=== PATIENT | male | born 1990 | race Caucasian/White ===

== ENCOUNTER 2019-04-12 01:42 | Emergency (ER) | payer OTHER ==
[2019-04-12 01:51] VITALS: TEMP 97.8
[2019-04-12] MEDS ORDERED: FLUORESCEIN STRIPS 1 MG STRIP LEFT EYE ONE (01:52)
[2019-04-12] MEDS ORDERED: PROPARACAINE 0.5% OPHTH DROPS 15 ML BTL LEFT EYE STA (01:52)
--- NOTE | 2019-04-12 02:16 | ED ---
Eye Problem HPI - General Chief complaint: Eye Problems Stated complaint: Lft Eye Injury Time Seen by Provider: 04/12/19 01:52 Source: patient Mode of arrival: ambulatory Limitations: no limitations - History of Present Illness Initial comments: Spencer is a 28-year-old male presents the emergency department today for reevaluation of left eye pain. Patient reports around 7:30 PM he was grinding metal when he got metal in his left eye. Patient reports that he went to an outside facility where they evaluated his eye and removed a piece of metal. Patient reports a place drops in his eyes it numbed his eye completely and he felt great upon discharge. He was prescribed antibiotic drops which she has not yet had developed pain pill. Patient reports he returned home and was overly tender 15 minutes when he began feeling worsening pain in his eye at which time he decided to come to our facility for second opinion. Patient denies any vision changes but reports it hurts just to open his eye and it feels sicker still something in his eye or under his eyelid. - Related Data Home Medications Medication Instructions Recorded Confirmed No Known Home Medications 04/12/19 04/12/19 Allergies Allergy/AdvReac Type Severity Reaction Status Date / Time No Known Allergies Allergy Verified 04/12/19 01:51 Review of Systems ROS Statement: Those systems with pertinent positive or pertinent negative responses have been documented in the HPI. ROS Other: All systems not noted in ROS Statement are negative. Past Medical History Past Medical History: No Reported History History of Any Multi-Drug Resistant Organisms: None Reported Past Surgical History: Hernia Repair Smoking Status: Never smoker Past Alcohol Use History: None Reported Past Drug Use History: None Reported General Exam - General Exam Comments Initial Comments: Physical Exam GENERAL: Patient is well-developed and well-nourished. Patient is nontoxic and well- hydrated and is in no distress. HENT: Normocephalic, Atraumatic. EYES: PERRL, EOMI Conjunctival injection and tearing Normal eye shape Staining exam does reveal a small corneal abrasion at approximately 10 o'clock position over the iris negative Ricardo sign I care was used to measure pressures, 3 different measurements were taken, 13, 19, 13 all of these are within normal limits The eyelid was inverted there are no foreign bodies identified PULMONARY: Unlabored respirations CARDIOVASCULAR: There is a regular rate and rhythm without any murmurs gallops or rubs. ABDOMEN: Nondistended SKIN: Skin is clear with no lesions or rashes and otherwise unremarkable. : Deferred NEUROLOGIC: Patient is alert and oriented x3. Moving all extremities spontaneously MUSCULOSKELETAL: Normal extremities with adequate strength and full range of motion. No lower extremity swelling or edema. No calf tenderness. PSYCHIATRIC: Normal psychiatric evaluation. Limitations: no limitations Course Vital Signs 04/12/19 04/12/19 01:47 03:30 Temperature 97.8 F Pulse Rate 80 79 Respiratory 20 18 Rate Blood Pressure 138/92 141/83 O2 Sat by Pulse 96 99 Oximetry Medical Decision Making - Medical Decision Making The patient was seen and evaluated, history is obtained from the patient History and physical exam are consistent with corneal abrasion however patient does report metal was removed from his eye extent forcing staining with signs of corneal abrasion, no signs of perforation The eye has normal pressure Results were discussed with the patient who is comfortable with plan for discharge home. Patient was treated with erythromycin ointment for the corneal abrasion Patient will be referred to our plan for outpatient evaluation. Disposition Clinical Impression: Corneal abrasion Disposition: HOME SELF-CARE Condition: Stable Instructions (If sedation given, give patient instructions): Eye Lubricant (Into the eye) Additional Instructions: Apply the erythromycin ointment to eye every 4 hours while awake Is patient prescribed a controlled substance at d/c from ED?: No Referrals: None,Stated [Primary Care Provider] - 1-2 days Mahendra France MD [STAFF PHYSICIAN] - 1-2 days
[2019-04-12] MEDS ORDERED: ERYTHROMYCIN 5 MG/GM OPHTH OINT 3.5 GM TUBE LEFT EYE ONE (02:30)
[2019-04-12 03:31] VITALS: BP 141/83; PULSE 79; RESP 18
== END 2019-04-12 03:31 | disposition home or self-care (01) ==
LOC: EC 01:42
DX: S05.02XA Injury of conjunctiva and corneal abrasion without foreign body, left eye, initial encounter (principal); W22.8XXA Striking against or struck by other objects, initial encounter
CPT/HCPCS: 99283

== ENCOUNTER 2019-06-01 23:11 | Emergency (ER) | payer OTHER ==
[2019-06-02] MEDS ORDERED: SODIUM CHLORIDE 0.9% 1,000 ML IV STA (00:09)
[2019-06-02] MEDS ORDERED: KETOROLAC 30 MG/ML 1 ML VIAL IVP STA (00:09)
[2019-06-02 00:43] LABS: Basophils # (A) 0.1 k/uL (0-0.2); Basophils % (A) 1 %; Eosinophils # (A) 0.3 k/uL (0-0.7); Eosinophils % (A) 3 %; HCT 42.5 % (39.0-53.0); HGB 14.6 gm/dL (13.0-17.5); Lymphocytes # (A) 2.5 k/uL (1.0-4.8); Lymphocytes % (A) 29 %; MCH 29.3 pg (25.0-35.0); MCHC 34.3 g/dL (31.0-37.0); MCV 85.4 fL (80.0-100.0); Mean Platelet Volume 6.5; Monocytes # (A) 0.5 k/uL (0-1.0); Monocytes % (A) 6 %; Neutrophils # (A) 5.2 k/uL (1.3-7.7); Neutrophils % (A) 59 %; Platelet Count 252 k/uL (150-450); RBC 4.97 m/uL (4.30-5.90); RDW 12.5 % (11.5-15.5); WBC 8.9 k/uL (3.8-10.6)
--- NOTE | 2019-06-02 00:50 | XR ---
EXAMINATION TYPE: XR KUB DATE OF EXAM: 06/02/2019 COMPARISON: NONE HISTORY: Abdominal pain TECHNIQUE: 2 views upright FINDINGS: There is no sign of intestinal obstruction or pneumoperitoneum. Fecal pattern is normal. Th ere are no pathologic calcifications. Lung bases are clear. There is no sign of a mass. IMPRESSION: Nonacute abdomen.
[2019-06-02 00:51] LABS: ALT 52 U/L (21-72); AST 24 U/L (17-59); African American GFR (CKD) >90 (>60 ml/min/1.73 sqM); Albumin 4.4 g/dL (3.5-5.0); Alkaline Phosphatase 82 U/L (38-126); Amylase 62 U/L (30-110); Anion Gap 8 mmol/L; Blood Urea Nitrogen 17 mg/dL (9-20); Calcium 9.8 mg/dL (8.4-10.2); Carbon Dioxide 27 mmol/L (22-30); Chloride 105 mmol/L (98-107); Glucose 113 mg/dL (74-99); Potassium 3.9 mmol/L (3.5-5.1); Sodium 140 mmol/L (137-145); Total Bilirubin 0.4 mg/dL (0.2-1.3); Total Protein 7.4 g/dL (6.3-8.2)
[2019-06-02 01:09] LABS: Appearance,Urine Clear (Clear); Bilirubin,Urine Negative (Negative); Blood,Urine Negative (Negative); Color,Urine Yellow; Glucose,Urine (UA) Negative (Negative); Ketones,Urine Negative (Negative); Leukocyte Esterase,Urine Negative (Negative); Nitrite,Urine Negative (Negative); Protein,Urine Trace (Negative); Specific Gravity,Urine 1.029 (1.001-1.035)
--- NOTE | 2019-06-02 01:50 | CT ---
EXAMINATION TYPE: CT abdomen pelvis w con DATE OF EXAM: 06/02/2019 COMPARISON: None HISTORY: RUQ Abd Pain CT DLP: 1519.50 mGycm Automated exposure control for dose reduction was used. TECHNIQUE: Helical acquisition of images was performed from the lung bases through the pelvis. CONTRAST: Performed without Oral Contrast and with IV Contrast, patient injected with 100 mL of Isovue 300. FINDINGS: Lung bases are clear. There is no pleural effusion. There is no pericardial effusion. Liver spleen pancreas stomach appear normal. Bile ducts are not dilated. Gallbladder is contracted. There is no adrenal mass. Kidneys show satisfactory contrast opacification. There is no hydronephrosi s. Ureters are not dilated. There is no retroperitoneal adenopathy. Bladder distends smoothly. There is no inguinal hernia. There is no free fluid in the pelvis. Appendix appears normal. There is no mesenteric edema. There is no ascites or free air. Lumbar spine is intact. Bony pelvis is intact. There is no sign of a bowel obstruction. IMPRESSION: NEGATIVE CT SCAN ABDOMEN AND PELVIS. NORMAL APPENDIX.
[2019-06-02] MEDS ORDERED: ACET/COD 300 MG/30 MG STARTER PACK 6 TAB BTL PO STA (02:05)
--- NOTE | 2019-06-02 02:05 | ED ---
Abdominal Pain HPI - General Chief Complaint: Abdominal Pain Stated Complaint: Rt sided flank pain Time Seen by Provider: 06/02/19 00:00 Source: patient Mode of arrival: ambulatory Limitations: no limitations - History of Present Illness Initial Comments: 28-year-old male patient presents to the emergency department today for evaluation of right upper abdominal pain. Patient states he's been having discomfort for the last couple of days but is worsened today after having sexual intercourse. Patient states it hurts to take a deep breath, press over the area, or moves. He denies any nausea or vomiting. Denies constipation or diarrhea. Denies any fever or chills. He denies history of similar symptoms. Denies history of abdominal surgery. Patient denies any recent rash, shortness breath, chest pain, numbness, tingling, dizziness, weakness, hematuria, dysuria, urinary urgency, urinary frequency, headache, visual changes, or any other complaints. - Related Data Previous Rx's Medication Instructions Recorded Famotidine [Pepcid] 20 mg PO HS #30 tablet 06/02/19 Allergies Allergy/AdvReac Type Severity Reaction Status Date / Time No Known Allergies Allergy Verified 06/01/19 23:17 Review of Systems ROS Statement: Those systems with pertinent positive or pertinent negative responses have been documented in the HPI. ROS Other: All systems not noted in ROS Statement are negative. Past Medical History Past Medical History: No Reported History History of Any Multi-Drug Resistant Organisms: None Reported Past Surgical History: Hernia Repair Past Psychological History: No Psychological Hx Reported Smoking Status: Never smoker Past Alcohol Use History: None Reported Past Drug Use History: None Reported General Exam Limitations: no limitations General appearance: alert, in no apparent distress, other (This is a well- developed, well-nourished adult male patient in mild distress related to pain. Vital signs upon presentation are temperature 98.0F, pulse 87, respirations 20, blood pressure 145/97, pulse ox 98% on room air.) Eye exam: Present: normal appearance, PERRL, EOMI. Absent: scleral icterus, conjunctival injection, periorbital swelling ENT exam: Present: normal exam, normal oropharynx, mucous membranes moist Respiratory exam: Present: normal lung sounds bilaterally. Absent: respiratory distress, wheezes, rales, rhonchi, stridor Cardiovascular Exam: Present: regular rate, normal rhythm, normal heart sounds. Absent: systolic murmur, diastolic murmur, rubs, gallop, clicks GI/Abdominal exam: Present: soft, tenderness (Right upper quadrant tenderness), normal bowel sounds. Absent: distended, guarding, rebound, rigid Neurological exam: Present: alert, oriented X3, CN II-XII intact Psychiatric exam: Present: normal affect, normal mood Skin exam: Present: warm, dry, intact, normal color. Absent: rash Course Vital Signs 06/01/19 06/02/19 23:15 02:10 Temperature 98 F 97.5 F L Pulse Rate 87 66 Respiratory 20 18 Rate Blood Pressure 145/97 115/55 O2 Sat by Pulse 98 98 Oximetry Medical Decision Making - Medical Decision Making 28-year-old male patient presents to the emergency department today for evaluation of right upper quadrant abdominal pain and tenderness. Physical examination did reveal exquisite tenderness to the right upper quadrant and to the right lower ribs. Labs reviewed and are unremarkable. Given patient's amount of pain we did perform CT of the abdomen and pelvis which was unremarkable. Did show a contracted gallbladder. We did discuss possibility of biliary colic or gallbladder dysfunction. Is instructed to discuss HIDA scan with his primary care physician. Given a Tylenol with Codeine starter pack and a prescription for Pepcid per his request. Return parameters were discussed in detail. He verbalizes understanding and agrees with this plan. - Lab Data Result diagrams: 06/02/19 00:30 06/02/19 00:30 Lab Results 06/02/19 06/02/19 06/02/19 Range/Units 00:30 00:30 00:47 WBC 8.9 (3.8-10.6) k/uL RBC 4.97 (4.30-5.90) m/uL Hgb 14.6 (13.0-17.5) gm/dL Hct 42.5 (39.0-53.0) % MCV 85.4 (80.0-100.0) fL MCH 29.3 (25.0-35.0) pg MCHC 34.3 (31.0-37.0) g/dL RDW 12.5 (11.5-15.5) % Plt Count 252 (150-450) k/uL Neutrophils % 59 % Lymphocytes % 29 % Monocytes % 6 % Eosinophils % 3 % Basophils % 1 % Neutrophils # 5.2 (1.3-7.7) k/uL Lymphocytes # 2.5 (1.0-4.8) k/uL Monocytes # 0.5 (0-1.0) k/uL Eosinophils # 0.3 (0-0.7) k/uL Basophils # 0.1 (0-0.2) k/uL Sodium 140 (137-145) mmol/L Potassium 3.9 (3.5-5.1) mmol/L Chloride 105 (98-107) mmol/L Carbon Dioxide 27 (22-30) mmol/L Anion Gap 8 mmol/L BUN 17 (9-20) mg/dL Creatinine 0.88 (0.66-1.25) mg/dL Est GFR (CKD-EPI)AfAm >90 (>60 ml/min/1.73 sqM) Est GFR (CKD-EPI)NonAf >90 (>60 ml/min/1.73 sqM) Glucose 113 H (74-99) mg/dL Calcium 9.8 (8.4-10.2) mg/dL Total Bilirubin 0.4 (0.2-1.3) mg/dL AST 24 (17-59) U/L ALT 52 (21-72) U/L Alkaline Phosphatase 82 (38-126) U/L Total Protein 7.4 (6.3-8.2) g/dL Albumin 4.4 (3.5-5.0) g/dL Amylase 62 (30-110) U/L Lipase 117 (23-300) U/L Urine Color Yellow Urine Appearance Clear (Clear) Urine pH 6.0 (5.0-8.0) Ur Specific Meno 1.029 (1.001-1.035) Urine Protein Trace H (Negative) Urine Glucose (UA) Negative (Negative) Urine Ketones Negative (Negative) Urine Blood Negative (Negative) Urine Nitrite Negative (Negative) Urine Bilirubin Negative (Negative) Urine Urobilinogen 3.0 (<2.0) mg/dL Ur Leukocyte Esterase Negative (Negative) - Radiology Data Radiology results: report reviewed, image reviewed CT abdomen and pelvis is obtained. Report was reviewed in its entirety. Impression by Dr. Louis shows negative computed tomography scan abdomen and pelvis. Normal appendix per KUB x-ray of the abdomen is obtained. Report was reviewed in its entirety. Impression by Dr. Louis shows nonacute abdomen. Disposition Clinical Impression: Abdominal pain Disposition: HOME SELF-CARE Condition: Good Instructions (If sedation given, give patient instructions): Abdominal Pain (ED) Additional Instructions: Take medication as directed. Follow-up through primary care physician for recheck in 1-2 days. Discuss HIDA scan with your physician. Return to the emergency department immediately for any new, worsening, or concerning symptoms. Prescriptions: Famotidine [Pepcid] 20 mg PO HS #30 tablet Is patient prescribed a controlled substance at d/c from ED?: No Referrals: None,Stated [Primary Care Provider] - 1-2 days Time of Disposition: 02:04
[2019-06-02 02:12] VITALS: BP 115/55; PULSE 66; RESP 18; TEMP 97.5
== END 2019-06-02 02:21 | disposition home or self-care (01) ==
LOC: EC 23:11
DX: R10.11 Right upper quadrant pain (principal); R10.811 Right upper quadrant abdominal tenderness
CPT/HCPCS: 36415; 80053; 82150; 83690; 85025; 81003; 74018; 74177; 99284; 96374; 96361; J1885; Q9967

== ENCOUNTER 2020-08-25 15:05 | Emergency (ER) | payer OTHER ==
[2020-08-25] MEDS ORDERED: KETOROLAC 15 MG/ML 1 ML VIAL IVP STA (15:27)
[2020-08-25] MEDS ORDERED: ONDANSETRON 4 MG/2 ML VIAL IVP STA (15:27)
[2020-08-25] MEDS ORDERED: diphenhydrAMINE 50 MG/ML 1 ML VIAL IVP STA (15:27)
[2020-08-25] MEDS ORDERED: SODIUM CHLORIDE 0.9% 1,000 ML IV STA (15:27)
--- NOTE | 2020-08-25 16:25 | ED ---
Headache HPI - General Chief Complaint: Headache Stated Complaint: headache Time Seen by Provider: 08/25/20 15:13 Mode of arrival: ambulatory Limitations: no limitations - History of Present Illness Initial Comments: Patient is a 30-year-old male presenting to emergency Department with complaints of a intermittent headache for the last 2 weeks. Patient states he does not normally get headaches and if he does Motrin usually clears up. He states his headaches have been on and off for the past 2 weeks but then last night and today the headache has been more severe. Patient states he tried to take Advil this morning without improvement. He states this headache is worse than any others. He denies any blurry vision, he does feel fatigued. No nausea or vomiting. No chest pain or shortness of breath. He denies any pertinent past medical history, takes no medications. Denies any drug or alcohol use. Denies being on blood thinners. He denies any falls or trauma. He has no further complaints at this time. - Related Data Home Medications Medication Instructions Recorded Confirmed No Known Home Medications 08/25/20 08/25/20 Allergies Allergy/AdvReac Type Severity Reaction Status Date / Time No Known Allergies Allergy Verified 08/25/20 15:49 Review of Systems ROS Statement: Those systems with pertinent positive or pertinent negative responses have been documented in the HPI. ROS Other: All systems not noted in ROS Statement are negative. Past Medical History Past Medical History: No Reported History History of Any Multi-Drug Resistant Organisms: None Reported Past Surgical History: Hernia Repair Past Psychological History: No Psychological Hx Reported Smoking Status: Never smoker Past Alcohol Use History: None Reported Past Drug Use History: None Reported General Exam - General Exam Comments Initial Comments: GENERAL: Patient is well-developed and well-nourished. Patient is nontoxic and in no acute distress. HEAD: Atraumatic, normocephalic. EYES: Pupils equal round and reactive to light, extraocular movements intact, sclera anicteric, conjunctiva are normal. Eyelids were unremarkable. ENT: TMs normal, nares patent, oropharynx clear without exudates. Moist mucous membranes. NECK: Normal range of motion, supple without lymphadenopathy or JVD. LUNGS: Unlabored respirations. Breath sounds clear to auscultation bilaterally and equal. No wheezes rales or rhonchi. HEART: Regular rate and rhythm without murmurs, rubs or gallops. ABDOMEN: Soft, nontender, normoactive bowel sounds. No guarding, no rebound. No masses appreciated. : Deferred MUSCULOSKELETAL: Normal extremities with adequate strength and normal range of motion, no pitting or edema. No clubbing or cyanosis. NEUROLOGICAL: Patient is alert and oriented x 3. Motor and sensory are also intact. Cranial nerves II through XII grossly intact. Symmetrical smile. Normal speech, normal gait. PSYCH: Normal mood, normal affect. SKIN: Warm, Dry, normal turgor, no rashes or lesions noted. Limitations: no limitations Course Vital Signs 08/25/20 08/25/20 15:06 16:56 Temperature 98.8 F Pulse Rate 72 72 Respiratory 20 18 Rate Blood Pressure 145/84 113/65 O2 Sat by Pulse 98 99 Oximetry Medical Decision Making - Medical Decision Making Patient is a 30-year-old male here for a headache as been intermittent for last 2 weeks, worse the last 2 days. Exam is unremarkable, no neuro deficits. CT of the brain shows no acute abnormalities. Patient was given fluids, pain control and Zofran, he does report improvement in his symptoms. Patient is stable for discharge. Recommend following up with his PCP for further management of severe headaches. I recommend alternating Tylenol and Motrin for future headaches, trial of extra strength Excedrin. Patient is in agreement with this plan of care. Return parameters were discussed the patient he verbalizes understanding. Case discussed with Dr. Rain. Disposition Clinical Impression: Headache Disposition: HOME SELF-CARE Condition: Stable Instructions (If sedation given, give patient instructions): Acute Headache (ED) Additional Instructions: Please return to the Emergency Department if symptoms worsen or any other concerns. Alternate between Motrin and Tylenol for further headache control. Trial of Excedrin extra strength for future headaches. Follow-up with your regular doctor Is patient prescribed a controlled substance at d/c from ED?: No Referrals: None,Stated [Primary Care Provider] - 1-2 days
--- NOTE | 2020-08-25 16:40 | CT ---
EXAMINATION TYPE: CT brain wo con DATE OF EXAM: 08/25/2020 COMPARISON: None INDICATION: headache DLP: 1133.4 mGycm, Automated exposure control for dose reduction was used. CONTRAST: None CT of the brain is performed utilizing 3 mm thick sections through the posterior fossa and 3 mm thick sections through the remaining calvarium. Study is performed within 24 hours of arrival to the hosp [facility]. No abnormal hyperdensity is present to suggest an acute intracranial hemorrhage. No mass lesion is evident. No acute infarcts are evident. Ventricles and sulci are appropriate for the patient age. Paranasal sinuses and mastoid air cells within the [id number] are clear. IMPRESSIONS: 1. Normal CT Brain
[2020-08-25] MEDS ORDERED: MORPHINE SULFATE 2 MG/ML SYRINGE IVP ONE (16:50)
[2020-08-25 16:57] VITALS: RESP 18
[2020-08-25 18:06] VITALS: BP 144/62; PULSE 78; TEMP 98.4
== END 2020-08-25 18:06 | disposition home or self-care (01) ==
LOC: EC 15:05
DX: R51.9 Headache, unspecified (principal)
CPT/HCPCS: 70450; 99284; 96374; 96375 ×3; 96361; J1200; J2405; J2270; J1885

== ENCOUNTER 2020-09-19 20:47 | Emergency (ER) | payer OTHER ==
[2020-09-19 20:52] VITALS: BP 145/79; PULSE 74; RESP 18; TEMP 98.4
--- NOTE | 2020-09-19 21:41 | ED ---
Extremity Problem HPI - General Chief complaint: Extremity Problem,Nontraumatic Stated complaint: Bilateral Hand Pain Time Seen by Provider: 09/19/20 20:55 Source: patient Mode of arrival: ambulatory Limitations: no limitations - History of Present Illness Initial comments: 30yo male presenting for cc of bilateral hand pain. pt states that he has been pulling a lot of wire at work this week. he states that his hands have been burning bilaterally, sharp bruniing pains. patient denies loss of sensation, weakness, he denies sensation traveling up arms, denies sensation in feet. denies DM. denies history of neuropathy or carpal tunnel. pt denies hand swelling or redness. patietn has no additional complaints. denies direct injry. he appears well nontoxic on arrival no acute distress. - Related Data Home Medications Medication Instructions Recorded Confirmed No Known Home Medications 08/25/20 08/25/20 Allergies Allergy/AdvReac Type Severity Reaction Status Date / Time No Known Allergies Allergy Verified 09/19/20 20:52 Review of Systems ROS Statement: Those systems with pertinent positive or pertinent negative responses have been documented in the HPI. ROS Other: All systems not noted in ROS Statement are negative. Past Medical History Past Medical History: No Reported History History of Any Multi-Drug Resistant Organisms: None Reported Past Surgical History: Hernia Repair Past Psychological History: No Psychological Hx Reported Smoking Status: Never smoker Past Alcohol Use History: None Reported Past Drug Use History: None Reported General Exam - General Exam Comments Initial Comments: General: The patient is awake and alert, in no distress Eye: +3 mm pupils are equal, round and reactive to light, extra-ocular movements are intact. No nystagmus. There is normal conjunctiva bilaterally. No signs of icterus. Ears, nose, mouth and throat: There are moist mucous membranes and no oral lesions. Neck: The neck is supple, there is no tenderness or JVD. Musculoskeletal: Normal inspecdtion no redness or swelling. + phanels (left sided). (-) tinels. patient has full ROM at MCP, DIP and PIP joitns of all 5 digits of both hands equal b/l as wellas 5/5 strength in digits and wrists. 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 Sensation intact proximal and distally. Radial pulses equal bilaterally 2+. Neurological: A&O x 3. CN II-XII intact grossly, There are no obvious motor or sensory deficits. Coordination appears grossly intact. Speech is normal. Skin: Skin is warm and dry and no rashes or lesions are noted. Psychiatric: Cooperative, appropriate mood & affect, normal judgment. Limitations: no limitations Course Vital Signs 09/19/20 09/19/20 20:48 21:54 Temperature 98.4 F 98.4 F Pulse Rate 74 74 Respiratory 18 18 Rate Blood Pressure 145/79 145/79 O2 Sat by Pulse 96 96 Oximetry Medical Decision Making - Medical Decision Making INcreased hand/wrist activity this week. tingling, burning of hadn distal to wrist. +phalens b/l L> R. Suspect developing carpal tunnel. no weakness. no injury. recommend rest, NSAIDs. Return for worsening symptoms, or if ssensation travels proximally/experience in feet. patient is to see orthopedics/pcp. patient agreeable to care plan. Dr. Kelley agreeable to discharge/care plan. Disposition Clinical Impression: Bilateral hand pain Disposition: HOME SELF-CARE Condition: Good Instructions (If sedation given, give patient instructions): Paresthesia (ED), Carpal Tunnel Surgery (DC) Additional Instructions: Please use medication as discussed. Please follow-up with family doctor in the next 2 days. Please return to emergency room if the symptoms increase or worsen or for any other concerns. Is patient prescribed a controlled substance at d/c from ED?: No Referrals: None,Stated [Primary Care Provider] - 1-2 days Prasad Oseguera MD [STAFF PHYSICIAN] - 1-2 days Time of Disposition: 21:41
[2020-09-19] MEDS ORDERED: ACET/COD 300 MG/30 MG STARTER PACK 6 TAB BTL PO STA (21:51)
== END 2020-09-19 21:55 | disposition home or self-care (01) ==
LOC: EC 20:47
DX: M79.641 Pain in right hand (principal); M79.642 Pain in left hand; X58.XXXA Exposure to other specified factors, initial encounter; Y92.69 Other specified industrial and construction area as the place of occurrence of the external cause
CPT/HCPCS: 99283

== ENCOUNTER 2020-12-01 22:36 | Emergency (ER) | payer OTHER ==
[2020-12-01 22:39] VITALS: BP 148/86; PULSE 95; RESP 24; TEMP 98
--- NOTE | 2020-12-01 23:53 | XR ---
EXAMINATION TYPE: XR chest 2V DATE OF EXAM: 12/01/2020 COMPARISON: NONE HISTORY: Short of breath. Cough. TECHNIQUE: 2 views FINDINGS: Heart and mediastinum are normal. Lungs are clear of consolidation. There are no hilar mass es. Costophrenic angles are clear. Bony thorax is intact. There is small linear area of density in th e lateral right midlung field. IMPRESSION: Small linear infiltrate or atelectasis in the periphery of the right midlung. Normal hear t.
[2020-12-02] MEDS ORDERED: dexAMETHasone 2 MG TAB PO STA (00:06)
--- NOTE | 2020-12-02 00:06 | ED ---
URI HPI - General Source: patient Mode of arrival: ambulatory Limitations: no limitations <Sandhya Matthew - Last Filed: 12/02/20 00:26> <Sona Adhikari - Last Filed: 12/07/20 03:17> - General Chief Complaint: Upper Respiratory Infection Stated Complaint: MARIO ALBERTO, covid+ Time Seen by Provider: 12/01/20 22:42 - History of Present Illness Initial Comments: Patient is a 30-year-old male presenting to the emergency Department with complaints of increased in cough and shortness of breath. Patient states he tested positive for on 11/27/2020. He has been having cough, chills, low-grade temperature although his fever has seemed to go away. He denies any nausea or vomiting, no abdominal pain. He states he's been able to eat and drink as normal. He came in today because he feels like his shortness of breath is increasing and his cough is getting worse. Patient denies history of asthma or COPD, he is a nonsmoker. He has no past medical history and takes no medications. He has no further complaints. His vital signs are stable upon arrival. (Sandhya Matthew) - Related Data Previous Rx's Medication Instructions Recorded Albuterol Inhaler [Ventolin Hfa 4 puff INHALATION RT-QID PRN #1 12/02/20 Inhaler] puff Dexamethasone [Decadron] 6 mg PO DAILY 5 Days #5 tablet 12/02/20 Allergies Allergy/AdvReac Type Severity Reaction Status Date / Time No Known Allergies Allergy Verified 12/01/20 22:39 Review of Systems ROS Other: All systems not noted in ROS Statement are negative. <Sandhya Matthew - Last Filed: 12/02/20 00:26> ROS Other: All systems not noted in ROS Statement are negative. <Sona Adhikari - Last Filed: 12/07/20 03:17> ROS Statement: Those systems with pertinent positive or pertinent negative responses have been documented in the HPI. Past Medical History Past Medical History: No Reported History Additional Past Medical History / Comment(s): covid 19 - 11/27/20 History of Any Multi-Drug Resistant Organisms: None Reported Past Surgical History: Hernia Repair Past Psychological History: No Psychological Hx Reported Smoking Status: Never smoker Past Alcohol Use History: None Reported Past Drug Use History: None Reported <Sandhya Matthew - Last Filed: 12/02/20 00:26> General Exam Limitations: no limitations <Sandhya Matthew - Last Filed: 12/02/20 00:26> - General Exam Comments Initial Comments: GENERAL: Patient is well-developed and well-nourished. Patient is nontoxic and in no acute distress. HEAD: Atraumatic, normocephalic. EYES: Pupils equal round and reactive to light, extraocular movements intact, sclera anicteric, conjunctiva are normal. Eyelids were unremarkable. ENT: TMs normal, nares patent, oropharynx clear without exudates. Moist mucous membranes. NECK: Normal range of motion, supple without lymphadenopathy or JVD. LUNGS: Unlabored respirations. Breath sounds clear to auscultation bilaterally and equal. No wheezes rales or rhonchi. HEART: Regular rate and rhythm without murmurs, rubs or gallops. ABDOMEN: Soft, nontender, normoactive bowel sounds. No guarding, no rebound. No masses appreciated. : Deferred MUSCULOSKELETAL: Normal extremities with adequate strength and normal range of motion, no pitting or edema. No clubbing or cyanosis. NEUROLOGICAL: Patient is alert and oriented x 3. Motor and sensory are also intact. Cranial nerves II through XII grossly intact. Symmetrical smile. Normal speech, normal gait. PSYCH: Normal mood, normal affect. SKIN: Warm, Dry, normal turgor, no rashes or lesions noted. (Sandhya Matthew) Course Vital Signs 12/01/20 22:37 Temperature 98.0 F Pulse Rate 95 Respiratory 24 Rate Blood Pressure 148/86 O2 Sat by Pulse 99 Oximetry Medical Decision Making <Sandhya Matthew - Last Filed: 12/02/20 00:26> <Sona Adhikari - Last Filed: 12/07/20 03:17> - Medical Decision Making Patient is a 30-year-old healthy male here for worsening cough and shortness of breath over the past couple days. Patient tested positive for "blood on 11/27/2020. His vital signs are completely normal upon arrival. His exam is unremarkable. He is noted to have a dry cough. Chest x-ray shows small linear infiltrates of the right midlung, no other abnormalities. Patient does not meet qualifications for BAM infusion. Patient will be started on steroids and given an inhaler for his shortness of breath and cough. He is stable for discharge. He will follow up with his regular doctor. Return parameters were discussed with the patient and he verbalized understanding. Case discussed with Dr. Adhikari. (Sandhya Matthew) I was available for consultation in the emergency department. The history and physical exam were done by the midlevel provider. I was consulted for this patients care. I reviewed the case with the midlevel provider and based on their presentation of the patient, I agree with the assessment, medical decision making and plan of care as documented. Chart was dictated using [employer] dictation software. Attempts were made to correct any dictation errors however some typographical errors may persist. Patient was seen during a national state of emergency due to the Covid-19 pandemic. (Sona Adhikari) Disposition Is patient prescribed a controlled substance at d/c from ED?: No <Sandhya Matthew - Last Filed: 12/02/20 00:26> <Sona Adhikari - Last Filed: 12/07/20 03:17> Clinical Impression: COVID-19 Disposition: HOME SELF-CARE Condition: Stable Instructions (If sedation given, give patient instructions): Coronavirus Disease 2019 (COVID-19) Additional Instructions: Please return to the Emergency Department if symptoms worsen or any other concerns. Take steroids as prescribed, use inhaler as needed for cough or shortness of breath. Follow-up with your regular doctor. Prescriptions: Dexamethasone [Decadron] 6 mg PO DAILY 5 Days #5 tablet Albuterol Inhaler [Ventolin Hfa Inhaler] 4 puff INHALATION RT-QID PRN #1 puff PRN Reason: Shortness Of Breath Referrals: None,Stated [Primary Care Provider] - 1-2 days
== END 2020-12-02 00:17 | disposition home or self-care (01) ==
LOC: EC 22:36
DX: U07.1 COVID-19 (principal)
CPT/HCPCS: 71046; 99284; J8540

== ENCOUNTER 2020-12-11 23:02 | Emergency (ER) | payer OTHER ==
[2020-12-11 23:07] VITALS: TEMP 98
[2020-12-11] MEDS ORDERED: diphenhydrAMINE 50 MG/ML 1 ML VIAL IVP STA (23:23)
[2020-12-11] MEDS ORDERED: FAMOTIDINE 20 MG/2 ML VIAL IV STA (23:24)
[2020-12-11] MEDS ORDERED: KETOROLAC 15 MG/ML 1 ML VIAL IVP STA (23:24)
[2020-12-11] MEDS ORDERED: SODIUM CHLORIDE 0.9% 2,000 ML IV STA (23:30)
[2020-12-11] MEDS ORDERED: SODIUM CHLORIDE 0.9% 1,000 ML IV STA (23:30)
--- NOTE | 2020-12-11 23:30 | ED ---
Skin/Abscess/FB HPI - General Chief complaint: Skin/Abscess/Foreign Body Stated complaint: Rash Time Seen by Provider: 12/11/20 23:10 Source: patient, RN notes reviewed Mode of arrival: ambulatory Limitations: no limitations - History of Present Illness Initial comments: Patient is a 30-year-old male that presents to emergency department with a total body rash eruption. He notes that it is most painful and his groin, scrotum. He notes the rash appeared over the last 1-2 days. He notes the pain is severe enough that it is difficult from the walk lay down sit and over. Patient was in visible pain and distress while standing up in the room during the exam interview. Patient had too numerous to count vesicles/pustules covering his entire body groin buttocks upper legs trunk and torso. She denied any significant medical history other than recently getting over Covid. He noted that he was on steroids several times. Patient stated this the first time he said the skin is like this but noted that he does get pimples" on his upper body but nothing like this. He states the pain is excruciating. He also noted that elevating his testicles helped reduce pain in his scrotum and groin region. Patient denied chest pain shortness of breath headache nausea vomiting diarrhea constipation contact with any skin irritants, ALLERGIES. - Related Data Previous Rx's Medication Instructions Recorded Albuterol Inhaler [Ventolin Hfa 4 puff INHALATION RT-QID PRN #1 12/02/20 Inhaler] puff Dexamethasone [Decadron] 6 mg PO DAILY 5 Days #5 tablet 12/02/20 Famotidine [Pepcid] 20 mg PO BID #28 tablet 12/12/20 hydrOXYzine HCL [Atarax] 25 mg PO TID PRN #15 tab 12/12/20 traMADol HCl [Ultram] 50 mg PO Q4HR PRN 3 Days #18 tab 12/12/20 Allergies Allergy/AdvReac Type Severity Reaction Status Date / Time No Known Allergies Allergy Verified 12/11/20 23:07 Review of Systems ROS Statement: Those systems with pertinent positive or pertinent negative responses have been documented in the HPI. ROS Other: All systems not noted in ROS Statement are negative. Past Medical History Past Medical History: No Reported History Additional Past Medical History / Comment(s): covid 19 - 11/27/20 History of Any Multi-Drug Resistant Organisms: None Reported Past Surgical History: Hernia Repair Past Psychological History: No Psychological Hx Reported Smoking Status: Never smoker Past Alcohol Use History: None Reported Past Drug Use History: None Reported General Exam Limitations: no limitations General appearance: alert, in no apparent distress Head exam: Present: atraumatic, normocephalic, normal inspection Extremities exam: Present: normal inspection, full ROM, normal capillary refill. Absent: tenderness, pedal edema, joint swelling, calf tenderness Neurological exam: Present: alert, oriented X3, CN II-XII intact Psychiatric exam: Present: normal affect, normal mood Skin exam: Present: warm, dry, intact, normal color (Covering from just below the knee up to his chest), rash, vesicles (Vesicles and pustules covering large portion of body including the back chest abdomen groin and buttocks scrotum and genitalia) Course Vital Signs 12/11/20 12/12/20 23:05 00:07 Temperature 98 F Pulse Rate 131 H 99 Respiratory 20 18 Rate Blood Pressure 135/77 129/62 O2 Sat by Pulse 95 98 Oximetry Medical Decision Making - Medical Decision Making 30-year-old male with rash/vascular/pustules over upper body trunk groin and buttocks. Labs, 50 mg of Benadryl, 2 mg of Dilaudid, 50 mg of Toradol, 20 mg of Pepcid, CT of the pelvis with contrast ordered. Labs: White blood cells 15.2, LDH 646, C-reactive protein 4.5, rest of labs unremarkable., Ultrasound of the scrotum ordered. Case discussed with Dr. Antonio, patient can discharge home with follow-up to GI. - Lab Data Result diagrams: 12/11/20 23:27 12/11/20 23:27 Lab Results 12/11/20 12/11/20 12/11/20 Range/Units 23:27 23:27 23:27 WBC 15.2 H (3.8-10.6) k/uL RBC 4.92 (4.30-5.90) m/uL Hgb 15.0 (13.0-17.5) gm/dL Hct 41.4 (39.0-53.0) % MCV 84.1 (80.0-100.0) fL MCH 30.4 (25.0-35.0) pg MCHC 36.1 (31.0-37.0) g/dL RDW 12.2 (11.5-15.5) % Plt Count 263 (150-450) k/uL MPV 7.0 Neutrophils % 70 % Lymphocytes % 20 % Monocytes % 8 % Eosinophils % 1 % Basophils % 0 % Neutrophils # 10.6 H (1.3-7.7) k/uL Lymphocytes # 3.0 (1.0-4.8) k/uL Monocytes # 1.2 H (0-1.0) k/uL Eosinophils # 0.2 (0-0.7) k/uL Basophils # 0.1 (0-0.2) k/uL ESR 18 H (0-15) mm/hr PT 9.4 (9.0-12.0) sec INR 0.9 (<1.2) APTT 22.6 (22.0-30.0) sec Sodium 137 (137-145) mmol/L Potassium 4.5 (3.5-5.1) mmol/L Chloride 100 (98-107) mmol/L Carbon Dioxide 28 (22-30) mmol/L Anion Gap 9 mmol/L BUN 16 (9-20) mg/dL Creatinine 1.01 (0.66-1.25) mg/dL Est GFR (CKD-EPI)AfAm >90 (>60 ml/min/1.73 sqM) Est GFR (CKD-EPI)NonAf >90 (>60 ml/min/1.73 sqM) Glucose 103 H (74-99) mg/dL Calcium 9.6 (8.4-10.2) mg/dL Phosphorus 4.1 (2.5-4.5) mg/dL Magnesium 2.0 (1.6-2.3) mg/dL Total Bilirubin 0.7 (0.2-1.3) mg/dL AST 33 (17-59) U/L ALT 67 H (4-49) U/L Alkaline Phosphatase 108 (38-126) U/L Lactate Dehydrogenase 646 H (313-618) U/L C-Reactive Protein 4.5 H (<1.0) mg/dL Total Protein 7.1 (6.3-8.2) g/dL Albumin 4.3 (3.5-5.0) g/dL Urine Color Urine Appearance (Clear) Urine pH (5.0-8.0) Ur Specific [place] (1.001-1.035) Urine Protein (Negative) Urine Glucose (UA) (Negative) Urine Ketones (Negative) Urine Blood (Negative) Urine Nitrite (Negative) Urine Bilirubin (Negative) Urine Urobilinogen (<2.0) mg/dL Ur Leukocyte Esterase (Negative) 12/12/20 Range/Units 00:41 WBC (3.8-10.6) k/uL RBC (4.30-5.90) m/uL Hgb (13.0-17.5) gm/dL Hct (39.0-53.0) % MCV (80.0-100.0) fL MCH (25.0-35.0) pg MCHC (31.0-37.0) g/dL RDW (11.5-15.5) % Plt Count (150-450) k/uL MPV Neutrophils % % Lymphocytes % % Monocytes % % Eosinophils % % Basophils % % Neutrophils # (1.3-7.7) k/uL Lymphocytes # (1.0-4.8) k/uL Monocytes # (0-1.0) k/uL Eosinophils # (0-0.7) k/uL Basophils # (0-0.2) k/uL ESR (0-15) mm/hr PT (9.0-12.0) sec INR (<1.2) APTT (22.0-30.0) sec Sodium (137-145) mmol/L Potassium (3.5-5.1) mmol/L Chloride (98-107) mmol/L Carbon Dioxide (22-30) mmol/L Anion Gap mmol/L BUN (9-20) mg/dL Creatinine (0.66-1.25) mg/dL Est GFR (CKD-EPI)AfAm (>60 ml/min/1.73 sqM) Est GFR (CKD-EPI)NonAf (>60 ml/min/1.73 sqM) Glucose (74-99) mg/dL Calcium (8.4-10.2) mg/dL Phosphorus (2.5-4.5) mg/dL Magnesium (1.6-2.3) mg/dL Total Bilirubin (0.2-1.3) mg/dL AST (17-59) U/L ALT (4-49) U/L Alkaline Phosphatase (38-126) U/L Lactate Dehydrogenase (313-618) U/L C-Reactive Protein (<1.0) mg/dL Total Protein (6.3-8.2) g/dL Albumin (3.5-5.0) g/dL Urine Color Yellow Urine Appearance Clear (Clear) Urine pH 7.0 (5.0-8.0) Ur Specific [place] >1.050 H (1.001-1.035) Urine Protein Negative (Negative) Urine Glucose (UA) Negative (Negative) Urine Ketones Negative (Negative) Urine Blood Negative (Negative) Urine Nitrite Negative (Negative) Urine Bilirubin Negative (Negative) Urine Urobilinogen 4.0 (<2.0) mg/dL Ur Leukocyte Esterase Negative (Negative) - Radiology Data Radiology results: report reviewed, image reviewed CT of the pelvis: There is some mild perianal subcutaneous edema which is new compared to old exam no evidence of pelvic mass. Normal appendix. Ultrasound of the scrotum: No acute findings in the scrotum. Disposition Clinical Impression: Vasculitis, COVID-19, Rectal pain Disposition: HOME SELF-CARE Condition: Stable Instructions (If sedation given, give patient instructions): Rectal Pain (ED), Coronavirus Disease 2019 (COVID-19) Prescriptions: hydrOXYzine HCL [Atarax] 25 mg PO TID PRN #15 tab PRN Reason: Allergic Reaction Famotidine [Pepcid] 20 mg PO BID #28 tablet traMADol HCl [Ultram] 50 mg PO Q4HR PRN 3 Days #18 tab PRN Reason: Pain Is patient prescribed a controlled substance at d/c from ED?: Yes When asked, does pt state using other controlled substances?: No If prescribed controlled substance>3 days was MAPS reviewed?: Prescribed <3 Days If opioid is for acute pain is fill amount 7 days or less?: Yes If Rx opioid, was Start Talking consent form obtained?: No Referrals: None,Stated [Primary Care Provider] - 1-2 days Harjit Ellison MD [STAFF PHYSICIAN] - 1-2 days Time of Disposition: 02:13
[2020-12-11] MEDS: HYDROmorphone 1 MG/ML 1 ML SYRINGE IVP STA ×2 (23:32→23:34)
[2020-12-11 23:39] LABS: Basophils # (A) 0.1 k/uL (0-0.2); Basophils % (A) 0 %; Eosinophils # (A) 0.2 k/uL (0-0.7); Eosinophils % (A) 1 %; HCT 41.4 % (39.0-53.0); Lymphocytes % (A) 20 %; MCH 30.4 pg (25.0-35.0); MCHC 36.1 g/dL (31.0-37.0); MCV 84.1 fL (80.0-100.0); Monocytes # (A) 1.2 k/uL (0-1.0); Monocytes % (A) 8 %; Neutrophils # (A) 10.6 k/uL (1.3-7.7); Neutrophils % (A) 70 %; Platelet Count 263 k/uL (150-450); RBC 4.92 m/uL (4.30-5.90); RDW 12.2 % (11.5-15.5); WBC 15.2 k/uL (3.8-10.6)
[2020-12-11 23:47] LABS: INR 0.9 (<1.2); Partial Thromboplastin Time 22.6 sec (22.0-30.0); Prothrombin Time 9.4 sec (9.0-12.0)
[2020-12-11 23:52] LABS: ALT 67 U/L (4-49); AST 33 U/L (17-59); African American GFR (CKD) >90 (>60 ml/min/1.73 sqM); Albumin 4.3 g/dL (3.5-5.0); Alkaline Phosphatase 108 U/L (38-126); Anion Gap 9 mmol/L; Blood Urea Nitrogen 16 mg/dL (9-20); C Reactive Protein 4.5 mg/dL (<1.0); Calcium 9.6 mg/dL (8.4-10.2); Carbon Dioxide 28 mmol/L (22-30); Chloride 100 mmol/L (98-107); Glucose 103 mg/dL (74-99); LDH 646 U/L (313-618); Non-African American GFR(CKD) >90 (>60 ml/min/1.73 sqM); Phosphorus 4.1 mg/dL (2.5-4.5); Potassium 4.5 mmol/L (3.5-5.1); Sodium 137 mmol/L (137-145); Total Bilirubin 0.7 mg/dL (0.2-1.3); Total Protein 7.1 g/dL (6.3-8.2)
--- NOTE | 2020-12-12 00:18 | CT ---
EXAMINATION TYPE: CT pelvis w con DATE OF EXAM: 12/11/2020 COMPARISON: 06/02/2019 HISTORY: painful rash in genital area post covid. prior CT of A/P on PACS CT DLP: 1147.2 mGycm Automated exposure control for dose reduction was used. CONTRAST: Performed with IV Contrast, patient injected with iso 300/100ml mL of Isovue 300. Images obtained from the iliac crests to the floor the pelvis with IV contrast. Appendix appears normal. There is no free fluid in the pelvis. Bladder distends smoothly. There is no evidence of pelvic mass. There is no inguinal hernia. There is no sign of mesenteric edema. There is no evidence of ascites. There is no sign of free air. There is subcutaneous edema around the anus. There is no discrete fluid collection. IMPRESSION: There is some mild perianal subcutaneous edema which is new compared to old exam. No evidence of a pe lvic mass. Normal appendix.
[2020-12-12] MEDS ORDERED: SODIUM CHLORIDE 0.9% 1,000 ML IV STA (00:36)
[2020-12-12 00:47] VITALS: RESP 18
[2020-12-12 00:48] LABS: Erythrocyte Sedimentation Rate 18 mm/hr (0-15)
[2020-12-12 00:58] LABS: Appearance,Urine Clear (Clear); Bilirubin,Urine Negative (Negative); Blood,Urine Negative (Negative); Color,Urine Yellow; Glucose,Urine (UA) Negative (Negative); Ketones,Urine Negative (Negative); Leukocyte Esterase,Urine Negative (Negative); Nitrite,Urine Negative (Negative); Protein,Urine Negative (Negative)
[2020-12-12 01:10] LABS: Specific Gravity,Urine >1.050 (1.001-1.035)
--- NOTE | 2020-12-12 01:54 | US ---
EXAM: US Scrotum CLINICAL HISTORY: ITS.REASON US Reason: pain TECHNIQUE: Real-time ultrasound of the scrotum with color Doppler and image documentation. COMPARISON: No relevant prior studies available. FINDINGS: Right testicle: The right testicle measures 4.5 x 2.5 x 3 cm, 17.3 mL. The echo texture is normal. Doppler blood flow is normal. No torsion. Left testicle: The left testicle measures 4.6 x 2.7 x 2.7 cm, 17.1 mL. The echo texture is normal. Doppler blood flow is normal. No torsion. Epididymides: The right epididymis measures 1.7 cm with normal appearance. The left epididymal head measures 1.1 cm with normal appearance. Scrotum: Unremarkable. IMPRESSION: No acute findings in the scrotum.
[2020-12-12 02:39] VITALS: BP 144/89; PULSE 78
== END 2020-12-12 02:38 | disposition home or self-care (01) ==
LOC: EC 23:02
DX: L95.9 Vasculitis limited to the skin, unspecified (principal); K62.89 Other specified diseases of anus and rectum; Z86.16 Personal history of COVID-19
CPT/HCPCS: 36415; 80053; 85652; 83615; 83735; 84100; 85025; 85610; 85730; 86140; 81003; 87491; 87591; 93975; 76870; 72193; 99283; 96361 ×3; 96374; 96375 ×3; J1200; J1170; J1885; Q9967; 96365

== ENCOUNTER 2020-12-14 19:47 | Inpatient (IN) | payer OTHER ==
[2020-12-14] MEDS ORDERED: ACETAMINOPHEN TAB 500 MG TAB PO STA (20:20)
[2020-12-14] MEDS ORDERED: IBUPROFEN 600 MG TAB PO STA (20:20)
[2020-12-14] MEDS ORDERED: ONDANSETRON 4 MG/2 ML VIAL IVP STA (20:34)
[2020-12-14] MEDS ORDERED: MORPHINE SULFATE 4 MG/ML SYRINGE IVP STA ×2 (20:34→23:11)
[2020-12-14] MEDS: SODIUM CHLORIDE 0.9% 500 ML 500 ML IV SCH ×3 (20:41→22:32)
[2020-12-14] MEDS ORDERED: cefTRIAXone IN SWFI 1,000 MG/10 ML SYRINGE IVP STA (20:50)
--- NOTE | 2020-12-14 20:50 | ED ---
General Adult HPI - General Chief complaint: Allergic Reaction Stated complaint: Rash Time Seen by Provider: 12/14/20 20:02 Source: patient, EMS Mode of arrival: EMS - History of Present Illness Initial comments: 30-year-old male presents to the emergency room for a chief complaint of perineum pain. Patient has had this pain for about 4 days now. Patient states he felt a rash at the same time and thought it was related to his coronavirus in that he had just started Decadron. However the pain has worsened. States he is having fevers. Patient was diagnosed with coronavirus on November 27 and only had fevers for 3 days and then they resolved. However he has started to have fevers again for the past 4 days. Patient does admit to dysuria. He denies upper abdominal pain but does admit to mid abdominal pain. Admits to vomiting.Patient has no other complaints at this time including shortness of breath, chest pain, headache, or visual changes. - Related Data Previous Rx's Medication Instructions Recorded Albuterol Inhaler [Ventolin Hfa 4 puff INHALATION RT-QID PRN #1 12/02/20 Inhaler] puff Dexamethasone [Decadron] 6 mg PO DAILY 5 Days #5 tablet 12/02/20 Famotidine [Pepcid] 20 mg PO BID #28 tablet 12/12/20 hydrOXYzine HCL [Atarax] 25 mg PO TID PRN #15 tab 12/12/20 traMADol HCl [Ultram] 50 mg PO Q4HR PRN 3 Days #18 tab 12/12/20 Allergies Allergy/AdvReac Type Severity Reaction Status Date / Time dexamethasone [From Decadron] Allergy Rash/Hives Verified 12/14/20 19:59 Review of Systems ROS Statement: Those systems with pertinent positive or pertinent negative responses have been documented in the HPI. ROS Other: All systems not noted in ROS Statement are negative. Past Medical History Past Medical History: No Reported History Additional Past Medical History / Comment(s): covid 19 - 11/27/20 History of Any Multi-Drug Resistant Organisms: None Reported Past Surgical History: Hernia Repair Past Psychological History: No Psychological Hx Reported Smoking Status: Never smoker Past Alcohol Use History: None Reported Past Drug Use History: None Reported General Exam General appearance: alert, in no apparent distress Head exam: Present: atraumatic, normocephalic, normal inspection Eye exam: Present: normal appearance, PERRL, EOMI. Absent: scleral icterus, conjunctival injection, periorbital swelling ENT exam: Present: normal exam, mucous membranes moist Neck exam: Present: normal inspection. Absent: tenderness, meningismus, lymphadenopathy Respiratory exam: Present: normal lung sounds bilaterally. Absent: respiratory distress, wheezes, rales, rhonchi, stridor Cardiovascular Exam: Present: regular rate, normal rhythm, normal heart sounds. Absent: systolic murmur, diastolic murmur, rubs, gallop, clicks GI/Abdominal exam: Present: soft, tenderness (lower abdominal tenderness), normal bowel sounds. Absent: distended, guarding, rebound, rigid Rectal exam: Present: normal inspection, normal rectal tone. Absent: other (non-tender) exam: Present: other (tenderness to perineum, no rash or cellulitis, Milly RANDOLPH present as rn heart). Absent: testicular tenderness, urethral discharge, scrotal swelling, vertical testicular lie, circumcision Course Vital Signs 12/14/20 12/14/20 19:54 21:45 Temperature 103.6 F H 100.5 F H Pulse Rate 118 H 106 H Respiratory 18 18 Rate Blood Pressure 149/78 118/53 O2 Sat by Pulse 95 93 L Oximetry Medical Decision Making - Medical Decision Making Patient was sent to the 103.6 fever and tachycardia which is likely reflexive to fever. Physical exam does reveal tenderness around the perineal area, no obvious abscess or cellulitis. CBC does reveal leukocytosis of [place] 0.7 with a left shift. CMP unremarkable. Urinalysis unremarkable. CT abdomen and pelvis did reveal a 3.2 x 2.3 centimeter fluid collection with surrounding mild fat stranding on the anterior aspect of the anus near the skin surface this is consistent with perianal abscess and is increased in size slightly compared to recent exam. Repeat exam with [place] as rn heart. I do not see any evident abscess on physical exam. I did discuss this case with Dr. Murillo who will take patient in the morning to surgery, recommends antibiotics. Of note patient was diagnosed with coronavirus about 2 weeks ago, we will repeat swab tonight. - Lab Data Result diagrams: 12/14/20 20:30 12/14/20 20:30 Lab Results 04/27/21 04/27/21 04/27/21 Range/Units 20:30 20:30 20:30 WBC 12.7 H (3.8-10.6) k/uL RBC 4.86 (4.30-5.90) m/uL Hgb 13.6 (13.0-17.5) gm/dL Hct 41.4 (39.0-53.0) % MCV 85.1 (80.0-100.0) fL MCH 28.0 (25.0-35.0) pg MCHC 33.0 (31.0-37.0) g/dL RDW 12.3 (11.5-15.5) % Plt Count 222 (150-450) k/uL MPV 7.0 Neutrophils % 83 % Lymphocytes % 9 % Monocytes % 6 % Eosinophils % 1 % Basophils % 0 % Neutrophils # 10.6 H (1.3-7.7) k/uL Lymphocytes # 1.1 (1.0-4.8) k/uL Monocytes # 0.7 (0-1.0) k/uL Eosinophils # 0.1 (0-0.7) k/uL Basophils # 0.0 (0-0.2) k/uL PT 11.1 (9.0-12.0) sec INR 1.1 (<1.2) APTT 22.6 (22.0-30.0) sec Sodium 134 L (137-145) mmol/L Potassium 4.5 (3.5-5.1) mmol/L Chloride 100 (98-107) mmol/L Carbon Dioxide 27 (22-30) mmol/L Anion Gap 7 mmol/L BUN 18 (9-20) mg/dL Creatinine 1.25 (0.66-1.25) mg/dL Est GFR (CKD-EPI)AfAm 88 (>60 ml/min/1.73 sqM) Est GFR (CKD-EPI)NonAf 76 (>60 ml/min/1.73 sqM) Glucose 95 (74-99) mg/dL Plasma Lactic Acid [place] (0.7-2.0) mmol/L Calcium 8.7 (8.4-10.2) mg/dL Total Bilirubin 1.3 (0.2-1.3) mg/dL AST 38 (17-59) U/L ALT 69 H (4-49) U/L Alkaline Phosphatase 94 (38-126) U/L Total Protein 6.8 (6.3-8.2) g/dL Albumin 3.8 (3.5-5.0) g/dL Urine Color Urine Appearance (Clear) Urine pH (5.0-8.0) Ur Specific [place] (1.001-1.035) Urine Protein (Negative) Urine Glucose (UA) (Negative) Urine Ketones (Negative) Urine Blood (Negative) Urine Nitrite (Negative) Urine Bilirubin (Negative) Urine Urobilinogen (<2.0) mg/dL Ur Leukocyte Esterase (Negative) 12/14/20 12/14/20 Range/Units 20:30 21:40 WBC (3.8-10.6) k/uL RBC (4.30-5.90) m/uL Hgb (13.0-17.5) gm/dL Hct (39.0-53.0) % MCV (80.0-100.0) fL MCH (25.0-35.0) pg MCHC (31.0-37.0) g/dL RDW (11.5-15.5) % Plt Count (150-450) k/uL MPV Neutrophils % % Lymphocytes % % Monocytes % % Eosinophils % % Basophils % % Neutrophils # (1.3-7.7) k/uL Lymphocytes # (1.0-4.8) k/uL Monocytes # (0-1.0) k/uL Eosinophils # (0-0.7) k/uL Basophils # (0-0.2) k/uL PT (9.0-12.0) sec INR (<1.2) APTT (22.0-30.0) sec Sodium (137-145) mmol/L Potassium (3.5-5.1) mmol/L Chloride (98-107) mmol/L Carbon Dioxide (22-30) mmol/L Anion Gap mmol/L BUN (9-20) mg/dL Creatinine (0.66-1.25) mg/dL Est GFR (CKD-EPI)AfAm (>60 ml/min/1.73 sqM) Est GFR (CKD-EPI)NonAf (>60 ml/min/1.73 sqM) Glucose (74-99) mg/dL Plasma Lactic Acid [place] 1.0 (0.7-2.0) mmol/L Calcium (8.4-10.2) mg/dL Total Bilirubin (0.2-1.3) mg/dL AST (17-59) U/L ALT (4-49) U/L Alkaline Phosphatase (38-126) U/L Total Protein (6.3-8.2) g/dL Albumin (3.5-5.0) g/dL Urine Color Yellow Urine Appearance Clear (Clear) Urine pH 8.0 (5.0-8.0) Ur Specific [place] >1.050 H (1.001-1.035) Urine Protein Trace H (Negative) Urine Glucose (UA) Negative (Negative) Urine Ketones Trace H (Negative) Urine Blood Negative (Negative) Urine Nitrite Negative (Negative) Urine Bilirubin Negative (Negative) Urine Urobilinogen >12.0 (<2.0) mg/dL Ur Leukocyte Esterase Negative (Negative) Disposition Clinical Impression: Perianal abscess, Leukocytosis, Fever Disposition: ADMITTED IP TO THIS HOSP Is patient prescribed a controlled substance at d/c from ED?: No Referrals: None,Stated [Primary Care Provider] - 1-2 days Time of Disposition: 23:14
--- NOTE | 2020-12-14 21:04 | XR ---
EXAMINATION TYPE: XR chest 1V portable DATE OF EXAM: 12/14/2020 COMPARISON: 12/01/2020 HISTORY: Fever TECHNIQUE: FINDINGS: Heart and mediastinum are normal. Lungs are clear of infiltrate. There are no hilar masses. Costophrenic angles are clear. The bony thorax is intact. IMPRESSION: No active cardiopulmonary disease. Normal heart. No change.
[2020-12-14 21:12] LABS: Basophils % (A) 0 %; Eosinophils # (A) 0.1 k/uL (0-0.7); Eosinophils % (A) 1 %; HCT 41.4 % (39.0-53.0); HGB 13.6 gm/dL (13.0-17.5); Lymphocytes # (A) 1.1 k/uL (1.0-4.8); Lymphocytes % (A) 9 %; MCV 85.1 fL (80.0-100.0); Monocytes # (A) 0.7 k/uL (0-1.0); Monocytes % (A) 6 %; Neutrophils # (A) 10.6 k/uL (1.3-7.7); Neutrophils % (A) 83 %; Platelet Count 222 k/uL (150-450); RBC 4.86 m/uL (4.30-5.90); RDW 12.3 % (11.5-15.5); WBC 12.7 k/uL (3.8-10.6)
[2020-12-14 21:34] LABS: INR 1.1 (<1.2); Partial Thromboplastin Time 22.6 sec (22.0-30.0); Prothrombin Time 11.1 sec (9.0-12.0)
[2020-12-14 21:41] LABS: Albumin 3.8 g/dL (3.5-5.0); Calcium 8.7 mg/dL (8.4-10.2); Potassium 4.5 mmol/L (3.5-5.1); Total Bilirubin 1.3 mg/dL (0.2-1.3); Total Protein 6.8 g/dL (6.3-8.2)
--- NOTE | 2020-12-14 21:58 | CT ---
EXAMINATION TYPE: CT abdomen pelvis w con DATE OF EXAM: 12/14/2020 COMPARISON: 06/02/2019 HISTORY: c/o fever, pain, buring, rash around groin and scrotum CT DLP: 1483.6 mGycm Automated exposure control for dose reduction was used. CONTRAST: Performed with IV Contrast, patient injected with 100 mL of Isovue 300. Images obtained from the diaphragm to the floor the pelvis with IV contrast. There is mild subsegmental atelectasis at the posterior lung bases. There is no pericardial effusion. Heart appears normal. Liver spleen pancreas gallbladder stomach appear intact. Bile ducts are nondilated. There is no adrenal mass. Kidneys show satisfactory contrast opacification. There is no hydronephrosi s. Ureters are not dilated. There is no retroperitoneal adenopathy. Delayed images show normal renal excretion. Bladder distends smoothly. There is no inguinal hernia. There is no free fluid in the pelv is. There is no sign of a pelvic mass. There is no mesenteric edema. There is no ascites or free air. There is no bowel obstruction. There a re few distended small bowel loops with fluid that measure up to 3.1 cm. Appendix is posterior and ap pears normal. The lumbar vertebra have normal alignment. There is no compression fracture. The posterior elements a re intact. Disc spaces appear normal. The bony pelvis is intact. There is no hip dysplasia. IMPRESSION: Minimal subsegmental atelectasis at the lung bases. There is evidence for some mild small bowel ileus in the mid abdomen. I do not suspect a mechanical b owel obstruction. This could relate to gastroenteritis. This appears new compared to old exam.
[2020-12-14 22:30] LABS: Appearance,Urine Clear (Clear); Bilirubin,Urine Negative (Negative); Blood,Urine Negative (Negative); Color,Urine Yellow; Glucose,Urine (UA) Negative (Negative); Ketones,Urine Trace (Negative); Leukocyte Esterase,Urine Negative (Negative); Nitrite,Urine Negative (Negative); Protein,Urine Trace (Negative); Urobilinogen,Urine >12.0 mg/dL (<2.0)
[2020-12-14 22:42] LABS: Specific Gravity,Urine >1.050 (1.001-1.035)
[2020-12-14] MEDS ORDERED: NALOXONE 0.4 MG/ML 1 ML VIAL IV PRN (23:14)
[2020-12-14] MEDS ORDERED: ONDANSETRON 4 MG/2 ML VIAL IVP PRN (23:14)
[2020-12-14] MEDS ORDERED: PIPERACILLIN-TAZOBACTAM 3.375 GM in SODIUM CHLORIDE 0.9% 100 ML IVPB STA (23:15)
[2020-12-15] MEDS: SODIUM CHLORIDE 0.9% 1,000 ML IV SCH ×4 (00:46→22:15)
[2020-12-15] MEDS: HYDROmorphone 0.5 MG/0.5 ML SYRINGE IVP PRN ×2 (03:56→07:17)
[2020-12-15] MEDS: PIPERACILLIN-TAZOBACTAM 3.375 GM in SODIUM CHLORIDE 0.9% 100 ML IVPB SCH ×3 (05:49→22:52)
--- NOTE | 2020-12-15 09:06 | P.GSHP ---
History of Present Illness H&P Date: 12/15/20 CHIEF COMPLAINT: Perianal pain HISTORY OF PRESENT ILLNESS: This is a 30-year-old male with a known history of perirectal abscess I&D several years ago at [facility]. He denies any history of MRSA. He recently was diagnosed with COVID November 27. He did receive Decadron treatment. He has been symptomatically cough, shortness of breath and fever. Patient started having perianal discomfort about 4 days ago. He also been having fevers. He thought he had a rash in the area. He had applied Vas agatha ointment. Patient continued to have increase in pain. He came into the ER for further evaluation. Patient had computed tomography scan of the abdomen and pelvis that showed a 3.7 x 2.3 cm fluid collection with surrounding mild fat stranding on the anterior aspect of the anus near the skin service. This is consistent with perianal abscess and is increased in size compared to recent exam on 12/11/2020. She was examined and measured 1.9 cm in thickness. There is evidence of some mild small bowel ileus in the mid abdomen. Could relate to a gastroenteritis. Patient has been nauseated and having high fevers. Did have a fever of 103. He has been tachycardic and his leukocytosis. Patient has been admitted to the hospital started on IV antibiotics and will be taken to the OR today for an I&D of perirectal abscess. Patient denies any drainage from the abscess. PAST MEDICAL HISTORY: See list. PAST SURGICAL HISTORY: See list. MEDICATIONS: See list. ALLERGIES: See list. SOCIAL HISTORY: No illicit drug use. REVIEW OF SYSTEMS: CONSTITUTIONAL: Denies fever or chills. HEENT: Denies blurred vision, vision changes, or eye pain. Denies hemoptysis CARDIOVASCULAR: Denies chest pain or pressure. RESPIRATORY: No shortness of breath. GASTROINTESTINAL: See HPI for pertinent findings HEMATOLOGIC: Denies bleeding disorders. GENITOURINARY: Denies any blood in urine or increased urinary frequency. SKIN: Denies pruitis. Denies rash. PHYSICAL EXAM: VITAL SIGNS: Reviewed GENERAL: Well-developed in no acute distress. HEENT: No sclera icterus. Extraocular movements grossly intact. Moist buccal mucosa. Head is atraumatic, normocephalic. No nasal drainage. ABDOMEN: Soft. Nondistended. Nontender. NEUROLOGIC: Alert and oriented. Cranial nerves II through XII grossly intact. exam: Patient has extreme tenderness with palpation of the perineum area there is firmness noted. No erythema or rash noted. No drainage. LABORATORY DATA: WBC 2.7 hemoglobin 13.6 units to 22 sodium 134 creatinine 1.25 lactic acid 1.0 Covid detected IMAGING: computed tomography scan of the abdomen and pelvis that showed a 3.7 x 2.3 cm fluid collection with surrounding mild fat stranding on the anterior aspect of the anus near the skin service. This is consistent with perianal abscess and is increased in size compared to recent exam on 12/11/2020. She was examined and measured 1.9 cm in thickness. There is evidence of some mild small bowel ileus in the mid abdomen. Could relate to a gastroenteritis. ASSESSMENT: 1. Perirectal abscess 2. Prior history of perirectal abscess requiring I&D 3. Covid 19 diagnosed on November 27 still showing positive on PCR PLAN: -Patient is scheduled for I&D of perirectal abscess today with Dr. Murillo -Continue IV antibiotics -Continue IV fluids -Continue antiemetics -Continue pain medication as needed -Add IV Tylenol for fever -We'll add IV Protonix for GI prophylaxis and continue SCDs for DVT prophylaxis Physician Spiritual Care Coordinator note has been reviewed by physician. Signing provider agrees with the documented findings, assessment, and plan of care. Past Medical History Past Medical History: No Reported History Additional Past Medical History / Comment(s): covid 19 - 11/27/20 History of Any Multi-Drug Resistant Organisms: None Reported Past Surgical History: Hernia Repair Past Anesthesia/Blood Transfusion Reactions: No Reported Reaction Past Psychological History: No Psychological Hx Reported Smoking Status: Never smoker Past Alcohol Use History: None Reported Past Drug Use History: None Reported Medications and Allergies Home Medications Medication Instructions Recorded Confirmed Type Famotidine [Pepcid] 20 mg PO BID #28 tablet 12/12/20 12/14/20 Rx hydrOXYzine HCL [Atarax] 25 mg PO TID PRN #15 tab 12/12/20 12/14/20 Rx traMADol HCl [Ultram] 50 mg PO Q4HR PRN 3 Days #18 tab 12/12/20 12/14/20 Rx Allergies Allergy/AdvReac Type Severity Reaction Status Date / Time dexamethasone [From Decadron] Allergy Rash/Hives Verified 12/14/20 23:43 Surgical - Exam Vital Signs Temp Pulse Resp BP Pulse Ox 103.6 F H 118 H 18 149/78 95 12/14/20 19:54 12/14/20 19:54 12/14/20 19:54 12/14/20 19:54 12/14/20 19:54 Results - Labs 12/14/20 20:30 12/14/20 20:30 Abnormal Lab Results - Last 24 Hours (Table) 12/14/20 12/14/20 12/14/20 Range/Units 20:30 20:30 21:40 WBC 12.7 H (3.8-10.6) k/uL Neutrophils # 10.6 H (1.3-7.7) k/uL Sodium 134 L (137-145) mmol/L ALT 69 H (4-49) U/L Ur Specific [place] >1.050 H (1.001-1.035) Urine Protein Trace H (Negative) Urine Ketones Trace H (Negative) SARS-CoV-2 (PCR) (Not Detectd) 12/14/20 Range/Units 23:34 WBC (3.8-10.6) k/uL Neutrophils # (1.3-7.7) k/uL Sodium (137-145) mmol/L ALT (4-49) U/L Ur Specific [place] (1.001-1.035) Urine Protein (Negative) Urine Ketones (Negative) SARS-CoV-2 (PCR) Detected A (Not Detectd) Diabetes panel 12/14/20 Range/Units 20:30 Sodium 134 L (137-145) mmol/L Potassium 4.5 (3.5-5.1) mmol/L Chloride 100 (98-107) mmol/L Carbon Dioxide 27 (22-30) mmol/L BUN 18 (9-20) mg/dL Creatinine 1.25 (0.66-1.25) mg/dL Glucose 95 (74-99) mg/dL Calcium 8.7 (8.4-10.2) mg/dL AST 38 (17-59) U/L ALT 69 H (4-49) U/L Alkaline Phosphatase 94 (38-126) U/L Total Protein 6.8 (6.3-8.2) g/dL Albumin 3.8 (3.5-5.0) g/dL Calcium panel 12/14/20 Range/Units 20:30 Calcium 8.7 (8.4-10.2) mg/dL Albumin 3.8 (3.5-5.0) g/dL Pituitary panel 12/14/20 Range/Units 20:30 Sodium 134 L (137-145) mmol/L Potassium 4.5 (3.5-5.1) mmol/L Chloride 100 (98-107) mmol/L Carbon Dioxide 27 (22-30) mmol/L BUN 18 (9-20) mg/dL Creatinine 1.25 (0.66-1.25) mg/dL Glucose 95 (74-99) mg/dL Calcium 8.7 (8.4-10.2) mg/dL Adrenal panel 12/14/20 Range/Units 20:30 Sodium 134 L (137-145) mmol/L Potassium 4.5 (3.5-5.1) mmol/L Chloride 100 (98-107) mmol/L Carbon Dioxide 27 (22-30) mmol/L BUN 18 (9-20) mg/dL Creatinine 1.25 (0.66-1.25) mg/dL Glucose 95 (74-99) mg/dL Calcium 8.7 (8.4-10.2) mg/dL Total Bilirubin 1.3 (0.2-1.3) mg/dL AST 38 (17-59) U/L ALT 69 H (4-49) U/L Alkaline Phosphatase 94 (38-126) U/L Total Protein 6.8 (6.3-8.2) g/dL Albumin 3.8 (3.5-5.0) g/dL
[2020-12-15] MEDS ORDERED: HYDROmorphone 1 MG/ML 1 ML SYRINGE IVP STA (09:08)
[2020-12-15] MEDS: PANTOPRAZOLE 40 MG/10 ML VIAL IVP SCH (09:22)
[2020-12-15] MEDS: ACETAMINOPHEN IV (For NPO) 1,000 MG in EMPTY BAG 1 BAG IVPB SCH ×3 (11:23→22:14)
[2020-12-15] MEDS: HYDROmorphone 1 MG/ML 1 ML SYRINGE IVP PRN ×3 (12:06→23:39)
[2020-12-15] MEDS ORDERED: PROPOFOL 10 MG/ML 20 ML VIAL IV ONE (14:27)
[2020-12-15] MEDS ORDERED: SUCCINYLCHOLINE CHLORIDE 100 MG/5 ML SYR IV ONE (14:27)
[2020-12-15] MEDS ORDERED: fentaNYL (PF) 50 MCG/ML 2 ML AMP ONE (14:27)
[2020-12-15] MEDS ORDERED: HYDROmorphone (PF) 1 MG/ML ONE (14:27)
[2020-12-15] MEDS ORDERED: LIDOCAINE 1% INJ 10MG/ML (20 ML MDV) ONE (14:27)
[2020-12-15] MEDS ORDERED: MIDAZOLAM 2 MG/2 ML VIAL ONE (14:27)
[2020-12-15] MEDS ORDERED: ONDANSETRON 4 MG/2 ML VIAL ONE (14:27)
[2020-12-15] MEDS ORDERED: BUPIVACAINE (PF) 0.5% 30 ML VIAL SQ ONE (15:00)
[2020-12-15] MEDS ORDERED: LACTATED RINGERS 1,000 ML IV ONE (15:03)
--- NOTE | 2020-12-15 15:08 | P.OP ---
Date of Procedure: 12/15/20 Preoperative Diagnosis: Perianal abscess Postoperative Diagnosis: perianal abscess Procedure(s) Performed: Incision and drainage of perianal abscess Anesthesia: GRICELDA Surgeon: Santiago Murillo Estimated Blood Loss (ml): 5 Pathology: none sent Condition: stable Disposition: PACU Description of Procedure: Patient's placed on the operative table in the prone position he received general endotracheal tube anesthesia. His anus was prepped and draped usual fashion. On the right lateral heel area there was a in the area of induration. Using a 11 blade the skin was incised and then a pocket of pus was encountered. Using a hemostat the subcutaneous tissues were spread and the pus was extracted. The wound was cultured. The wound was irrigated. The wound was then packed with Kerlix gauze. Patient top she will was sent back to recovery room stable condition
[2020-12-16] MEDS: ACETAMINOPHEN IV (For NPO) 1,000 MG in EMPTY BAG 1 BAG IVPB SCH (03:14)
[2020-12-16] MEDS: HYDROmorphone 1 MG/ML 1 ML SYRINGE IVP PRN ×3 (03:15→09:52)
[2020-12-16] MEDS: PIPERACILLIN-TAZOBACTAM 3.375 GM in SODIUM CHLORIDE 0.9% 100 ML IVPB SCH ×2 (05:43→14:48)
[2020-12-16] MEDS: SODIUM CHLORIDE 0.9% 1,000 ML IV SCH ×2 (05:43→14:48)
[2020-12-16] MEDS ORDERED: HYDROcodone/APAP 5-325MG 1 EACH TAB PO PRN (08:14)
[2020-12-16] MEDS ORDERED: ACETAMINOPHEN TAB 500 MG TAB PO PRN (08:15)
[2020-12-16] MEDS ORDERED: HEPARIN SODIUM,PORCINE/PF 5,000 UNIT/0.5 ML SYRINGE SQ SCH (09:00)
[2020-12-16] MEDS: PANTOPRAZOLE 40 MG/10 ML VIAL IVP SCH (09:20)
[2020-12-16 09:27] VITALS: BP 135/76; PULSE 87; RESP 18; TEMP 97.9
[2020-12-16] MEDS ORDERED: KETOROLAC 15 MG/ML 1 ML VIAL IVP PRN (09:56)
[2020-12-16 11:57] LABS: Basophils % (A) 0 %; Eosinophils # (A) 0.1 k/uL (0-0.7); Eosinophils % (A) 1 %; HCT 37.8 % (39.0-53.0); HGB 13.2 gm/dL (13.0-17.5); Lymphocytes % (A) 10 %; MCH 29.6 pg (25.0-35.0); MCV 84.7 fL (80.0-100.0); Mean Platelet Volume 8.4; Monocytes # (A) 0.8 k/uL (0-1.0); Monocytes % (A) 8 %; Neutrophils # (A) 7.7 k/uL (1.3-7.7); Neutrophils % (A) 79 %; Platelet Count 210 k/uL (150-450); RBC 4.46 m/uL (4.30-5.90); RDW 11.7 % (11.5-15.5); WBC 9.8 k/uL (3.8-10.6)
[2020-12-16 12:21] LABS: ALT 42 U/L (4-49); AST 23 U/L (17-59); African American GFR (CKD) >90 (>60 ml/min/1.73 sqM); Albumin 3.5 g/dL (3.5-5.0); Albumin/Globulin Ratio 1.2; Alkaline Phosphatase 81 U/L (38-126); Anion Gap 7 mmol/L; Blood Urea Nitrogen 12 mg/dL (9-20); Calcium 8.3 mg/dL (8.4-10.2); Carbon Dioxide 26 mmol/L (22-30); Chloride 102 mmol/L (98-107); Globulin 2.9 g/dL; Glucose 93 mg/dL (74-99); Non-African American GFR(CKD) >90 (>60 ml/min/1.73 sqM); Potassium 4.1 mmol/L (3.5-5.1); Sodium 135 mmol/L (137-145); Total Bilirubin 1.2 mg/dL (0.2-1.3); Total Protein 6.4 g/dL (6.3-8.2)
--- NOTE | 2020-12-16 13:39 | P.CONS ---
History of Present Illness - Reason for Consult Perirectal abscess. - History of Present Illness Patient came in with the pain in the buttock area found to have perirectal abscess patient underwent incision and drainage. Patient was having fevers as well. Patient is still complaining of severe pain. Patient is presently on Zosyn which will be continued. Patient the was diagnosed with COVID-19 and his symptoms started about 3 weeks ago patient to be "is still positive which is not unexpected. Patient was septic on admission. Review of Systems REVIEW OF SYSTEMS: CONSTITUTIONAL: No fever, no malaise, no fatigue. HEENT: No recent visual problems or hearing problems. Denied any sore throat. CARDIOVASCULAR: No chest pain, orthopnea, PND, no palpitations, no syncope. PULMONARY: No shortness of breath, no cough, no hemoptysis. GASTROINTESTINAL: No diarrhea, no nausea, no vomiting, no abdominal pain. NEUROLOGICAL: No headaches, no weakness, no numbness. HEMATOLOGICAL: Denies any bleeding or petechiae. GENITOURINARY: Denies any burning micturition, frequency, or urgency. MUSCULOSKELETAL/RHEUMATOLOGICAL: Denies any joint pain, swelling, or any muscle pain. ENDOCRINE: Denies any polyuria or polydipsia. The rest of the 14-point review of systems is negative. Past Medical History Past Medical History: No Reported History Additional Past Medical History / Comment(s): covid 19 - 11/27/20 History of Any Multi-Drug Resistant Organisms: None Reported Past Surgical History: Hernia Repair Past Anesthesia/Blood Transfusion Reactions: No Reported Reaction Past Psychological History: No Psychological Hx Reported Smoking Status: Never smoker Past Alcohol Use History: None Reported Past Drug Use History: None Reported Medications and Allergies Home Medications Medication Instructions Recorded Confirmed Type Famotidine [Pepcid] 20 mg PO BID #28 tablet 12/12/20 12/14/20 Rx hydrOXYzine HCL [Atarax] 25 mg PO TID PRN #15 tab 12/12/20 12/14/20 Rx traMADol HCl [Ultram] 50 mg PO Q4HR PRN 3 Days #18 tab 12/12/20 12/14/20 Rx Allergies Allergy/AdvReac Type Severity Reaction Status Date / Time dexamethasone [From Decadron] Allergy Rash/Hives Verified 12/14/20 23:43 Physical Exam Vitals: Vital Signs Temp Pulse Resp BP Pulse Ox 12/16/20 08:54 97.9 F 87 18 135/76 98 12/16/20 08:00 87 18 12/16/20 02:15 16 12/16/20 01:15 101.0 F H 85 18 111/73 98 12/15/20 21:55 100.8 F H 12/15/20 20:05 103 H 16 12/15/20 19:23 100.8 F H 103 H 16 148/75 96 12/15/20 18:00 106 H 17 119/69 95 12/15/20 17:30 99.4 F 99 16 114/68 95 12/15/20 17:00 92 18 105/69 95 12/15/20 16:45 95 18 103/62 93 L 12/15/20 16:32 18 12/15/20 16:30 93 17 98/62 93 L 12/15/20 16:15 96 17 107/57 94 L 12/15/20 16:00 100.2 F H 96 18 106/68 94 L Intake and Output 12/15/20 12/16/20 12/16/20 22:59 06:59 14:59 Intake Total 500 Output Total 602 Balance -102 Intake: IV 500 Output: Urine 600 Estimated Blood Loss 2 Other: Voiding Method Urinal Urinal Urinal # Voids 1 650 PHYSICAL EXAMINATION: GENERAL: The patient is alert and oriented x3, not in any acute distress. Well developed, well nourished. HEENT: Pupils are round and equally reacting to light. EOMI. No scleral icterus. No conjunctival pallor. Normocephalic, atraumatic. No pharyngeal erythema. No thyromegaly. CARDIOVASCULAR: S1 and S2 present. No murmurs, rubs, or gallops. PULMONARY: Chest is clear to auscultation, no wheezing or crackles. ABDOMEN: Soft, nontender, nondistended, normoactive bowel sounds. No palpable organomegaly. MUSCULOSKELETAL: No joint swelling or deformity. EXTREMITIES: No cyanosis, clubbing, or pedal edema. NEUROLOGICAL: Gross neurological examination did not reveal any focal deficits. SKIN: Left buttock is postsurgically packed Results CBC & Chem 7: 12/16/20 10:21 12/16/20 10:21 Labs: Abnormal Lab Results - Last 24 Hours (Table) 12/16/20 12/16/20 Range/Units 10:21 10:21 Hct 37.8 L (39.0-53.0) % Sodium 135 L (137-145) mmol/L Calcium 8.3 L (8.4-10.2) mg/dL Microbiology - Last 24 Hours (Table) 12/15/20 15:04 Gram Stain - Preliminary Buttock Wound Culture - Preliminary 12/14/20 21:33 Blood Culture - Preliminary Blood No Growth after 24 hours 12/14/20 21:17 Blood Culture - Preliminary Blood No Growth after 24 hours 12/15/20 15:04 Anaerobic Culture - Preliminary Buttock Assessment and Plan Plan: -Perirectal abscess: Patient is to status post patient is on Zosyn which is appropriate will continue to monitor we'll await the wound cultures before we decide any antibiotics. Patient is comparing of severe pain patient was started on Toradol for pain along with the the present pain regimen -Covid 19 infection recently and patient is positive for pain which is not unexpected in spite of he not being infected -Sepsis secondary to assessment #1 -Mild hypovolemic hyponatremia which improved with IV fluids -Mild acute renal failure expected improvement IV fluids -DVT prophylaxis: Subcutaneous heparin
--- NOTE | 2020-12-16 14:27 | P.DS ---
Providers Date of admission: 12/15/20 16:01 Expected date of discharge: 12/16/20 Attending physician: Santiago Murillo Consults: 12/15/20 15:09 Consult Physician Routine Consulting Provider: Adán Keenan Consult Reason/Comments: med manage Do you want consulting provider notified?: Yes Primary care physician: Stated None Hospital Course: Discharge diagnosis 1. Perianal abscess status post incision and drainage Hospital course This is a 30-year-old male with a known history of perirectal abscess I&D several years ago at [place]. He denies any history of MRSA. He recently was diagnosed with COVID November 27. He did receive Decadron treatment. He has been symptomatically cough, shortness of breath and fever. Patient started having perianal discomfort about 4 days ago. He also been having fevers. He thought he had a rash in the area. He had applied Vaseline ointment. Patient continued to have increase in pain. He came into the ER for further evaluation. Patient had computed tomography scan of the abdomen and pelvis that showed a 3.7 x 2.3 cm fluid collection with surrounding mild fat stranding on the anterior aspect of the anus near the skin service. This is consistent with perianal abscess and is increased in size compared to recent exam on 12/11/2020. She was examined and measured 1.9 cm in thickness. There is evidence of some mild small bowel ileus in the mid abdomen. Could relate to a gastroenteritis. Patient has been nauseated and having high fevers. Did have a fever of 103. He has been tachycardic and his leukocytosis. Patient is status post incision and drainage of perianal abscess. Patient tolerated surgery well. Cultures are pending. He is afebrile. His white count has normalized. His pain is controlled. He is tolerating diet. He is up and ambulating. He is stable for discharge. Please refer to chart for any further details. Physician Special Education Paraeducator note has been reviewed by physician. Signing provider agrees with the documented findings, assessment, and plan of care. Patient Condition at Discharge: Stable Plan - Discharge Summary New Discharge Prescriptions: New metroNIDAZOLE [Flagyl] 500 mg PO Q8HR 7 Days #21 tab Levofloxacin [Levaquin] 500 mg PO DAILY 7 Days #7 tab HYDROcodone/APAP 5-325MG [[place] 5-325] 1 tab PO Q6HR PRN 3 Days #12 tab PRN Reason: Pain Continue hydrOXYzine HCL [Atarax] 25 mg PO TID PRN #15 tab PRN Reason: Allergic Reaction Famotidine [Pepcid] 20 mg PO BID #28 tablet Discontinued traMADol HCl [Ultram] 50 mg PO Q4HR PRN 3 Days #18 tab PRN Reason: Pain Discharge Medication List Famotidine [Pepcid] 20 mg PO BID #28 tablet 12/12/20 [Rx] hydrOXYzine HCL [Atarax] 25 mg PO TID PRN #15 tab 12/12/20 [Rx] HYDROcodone/APAP 5-325MG [[place] 5-325] 1 tab PO Q6HR PRN 3 Days #12 tab 12/16/20 [Rx] Levofloxacin [Levaquin] 500 mg PO DAILY 7 Days #7 tab 12/16/20 [Rx] metroNIDAZOLE [Flagyl] 500 mg PO Q8HR 7 Days #21 tab 12/16/20 [Rx] Follow up Appointment(s)/Referral(s): [facility], [NON-STAFF] - 1-2 Days None,Stated [Primary Care Provider] - 1-2 days Santiago Murillo MD [STAFF PHYSICIAN] - 1 Week Activity/Diet/Wound Care/Special Instructions: No driving while taking [place] No lifting over 10 pounds You may shower. No soaking or tub baths 2 weeks Very light activity until you are reevaluated at your follow up appointment with your surgeon Discharge Disposition: HOME WITH HOME HEALTH SERVICES
--- NOTE | 2020-12-22 17:54 | CDI ---
Documentation Clarification Form Date: 12/22/2020 05:48:36 PM From: Eric Jerome Phone: Gretchen Barrett [phone] Admit Date: 12/15/2020 04:01:00 PM Patient Name: Spencer Powers Visit Number: [id number] Discharge Date: 12/16/2020 03:30:00 PM ATTENTION: The Clinical Documentation Specialists (CDI) and [facility] Coding Staff appreciate your assistance in clarifying documentation. Please respond to the clarification below the line at the bottom and electronically sign. The CDI & [facility] Coding staff will review the response and follow-up if needed. Please note: Queries are made part of the Legal Health Record. If you have any questions, please contact the author of this message via ITS. Dr. Santiago Murillo The patient presented with the following clinical indicators. Additional clarification regarding the etiology/cause of the clinical indicators is requested. Consult 12/16 indicates sepsis due to anal abscess. Not mentioned elsewhere in the chart. History/Risk Factors: Clinical Indicators: WBC: Lactic acid: Blood cultures: Vitals signs: 12/15: temp 100.2, BP 106/68 Treatment: ID Consult: Antibiotics: IV Bolus: In your professional opinion, please clarify if these findings signify one of the following conditions: [ ] Sepsis POA [ ] Sepsis, Not POA [ ] Sepsis ruled out [ ] Severe Sepsis with organ failure [ ] Septic Shock [ ] SIRS, without underlying infectious process [ ] Other, please specify [ ] Unable to determine SIRS Criteria: 2 or more of the following may indicate SIRS -Temperature < 96.8F (36C) or > 101.0F (38.3C) -Heart Rate > 90 bpm -Respiratory Rate > 20 breaths/min or PaCO2 < 32 mmHg -White Blood Cell Count > 12,000 or < 4,000 cells/mm3 or > 10% bands MTDD
--- NOTE | 2020-12-30 16:00 | CDI ---
Documentation Clarification Form Date: 12/30/2020 03:44:10 PM From: Eric Jerome Phone: Gretchen Barrett [phone] Admit Date: 12/15/2020 04:01:00 PM Patient Name: Spencer Powers Visit Number: [id number] Discharge Date: 12/16/2020 03:30:00 PM ATTENTION: The Clinical Documentation Specialists (CDI) and [facility] Coding Staff appreciate your assistance in clarifying documentation. Please respond to the clarification below the line at the bottom and electronically sign. The CDI & [facility] Coding staff will review the response and follow-up if needed. Please note: Queries are made part of the Legal Health Record. If you have any questions, please contact the author of this message via ITS. Dr. Santiago Murillo The patient presented with the following clinical indicators. Additional clarification regarding the etiology/cause of the clinical indicators is requested. Consult 12/16 states septic on admission. Not mentioned in the discharge summary or elsewhere in chart. History/Risk Factors: +COVID, tachycardia due to fever, kit-rectal abscess Clinical Indicators: 12/14 ED: WBC: 12.7 Lactic acid: Blood cultures: Vitals signs: BP 118/53, Temp 103, pulse 118, resp 18 Treatment: ID Consult: Antibiotics: IV Bolus: Rocephin and zosyn In your professional opinion, please clarify if these findings signify one of the following conditions: [ x ] Sepsis POA [ ] Sepsis, Not POA [ ] Sepsis ruled out [ ] Severe Sepsis with organ failure [ ] Septic Shock [ ] SIRS, without underlying infectious process [ ] Other, please specify [ ] Unable to determine SIRS Criteria: 2 or more of the following may indicate SIRS -Temperature < 96.8F (36C) or > 101.0F (38.3C) -Heart Rate > 90 bpm -Respiratory Rate > 20 breaths/min or PaCO2 < 32 mmHg -White Blood Cell Count > 12,000 or < 4,000 cells/mm3 or > 10% band MTDD
--- NOTE | 2020-12-30 16:18 | CDI ---
Documentation Clarification Form Date: 12/30/2020 03:44:00 PM From: Eric Jerome Phone: Gretchen Barrett [phone] Admit Date: 12/15/2020 04:01:00 PM Patient Name: Spencer Powers Visit Number: [id number] Discharge Date: 12/16/2020 03:30:00 PM ATTENTION: The Clinical Documentation Specialists (CDI) and [facility] Coding Staff appreciate your assistance in clarifying documentation. Please respond to the clarification below the line at the bottom and electronically sign. The CDI & [facility] Coding staff will review the response and follow-up if needed. Please note: Queries are made part of the Legal Health Record. If you have any questions, please contact the author of this message via ITS. Dr. Santiago Murillo The patient presented with the following clinical indicators. Additional clarification regarding the etiology/cause of the clinical indicators is requested. Consult 12/16 states septic on admission. Sepsis is not mentioned in the discharge summary or elsewhere in the chart. History/Risk Factors: +COVID, kit-rectal abscess, tachycardia due to fever Clinical Indicators:ED 12/14: WBC: 12.7 Lactic acid: Blood cultures: Vitals signs: BP 118/53, temp 103, pulse 118, resp 18 Treatment: ID Consult: Antibiotics: IV Bolus: Rocephin and zosyn In your professional opinion, please clarify if these findings signify one of the following conditions: [ x ] Sepsis POA [ ] Sepsis, Not POA [ ] Sepsis ruled out [ ] SIRS, without underlying infectious process [ ] Other, please specify [ ] Unable to determine SIRS Criteria: 2 or more of the following may indicate SIRS -Temperature < 96.8F (36C) or > 101.0F (38.3C) -Heart Rate > 90 bpm -Respiratory Rate > 20 breaths/min or PaCO2 < 32 mmHg -White Blood Cell Count > 12,000 or < 4,000 cells/mm3 or > 10% bands MTDD
== END 2020-12-16 15:30 | disposition home health service (06) | DRG 853 ==
LOC: EC 19:47 → 6NMEDSUR 23:45 → OBSVTOIN 12-15 16:01
PROVIDERS: ADMIT Surgery; ATTEND Surgery
PROC: 0D9Q0ZZ Drainage of Anus, Open Approach (ICD-10-PCS; principal; 2020-12-15 10:15)
DX: A41.9 Sepsis, unspecified organism (principal); U07.1 COVID-19; K61.2 Anorectal abscess; E87.1 Hypo-osmolality and hyponatremia; N17.9 Acute kidney failure, unspecified; K56.7 Ileus, unspecified; K52.9 Noninfective gastroenteritis and colitis, unspecified
CPT/HCPCS: 36415; 71045; 74177; 80053; 81003; 83605; 85025; 85610; 85730; 87040; 87070; 87075; 87077; 87186; 87205; 87636

== ENCOUNTER 2020-12-20 22:25 | Emergency (ER) | payer OTHER ==
[2020-12-20 22:37] VITALS: BP 135/73; PULSE 114; RESP 18; TEMP 98.3
[2020-12-20] MEDS ORDERED: HYDROmorphone 1 MG/ML 1 ML SYRINGE IVP STA (23:12)
[2020-12-20] MEDS ORDERED: ONDANSETRON 4 MG/2 ML VIAL IVP STA (23:12)
[2020-12-20 23:39] LABS: Basophils % (A) 1 %; Eosinophils # (A) 0.4 k/uL (0-0.7); Eosinophils % (A) 5 %; HCT 40.2 % (39.0-53.0); HGB 13.9 gm/dL (13.0-17.5); Lymphocytes # (A) 2.4 k/uL (1.0-4.8); Lymphocytes % (A) 28 %; MCH 29.3 pg (25.0-35.0); MCHC 34.5 g/dL (31.0-37.0); MCV 84.8 fL (80.0-100.0); Mean Platelet Volume 6.7; Monocytes # (A) 0.4 k/uL (0-1.0); Monocytes % (A) 5 %; Neutrophils # (A) 5.2 k/uL (1.3-7.7); Neutrophils % (A) 61 %; Platelet Count 319 k/uL (150-450); RBC 4.73 m/uL (4.30-5.90); RDW 12.1 % (11.5-15.5); WBC 8.7 k/uL (3.8-10.6)
[2020-12-21 00:09] LABS: ALT 89 U/L (4-49); AST 43 U/L (17-59); African American GFR (CKD) >90 (>60 ml/min/1.73 sqM); Albumin 3.7 g/dL (3.5-5.0); Alkaline Phosphatase 71 U/L (38-126); Anion Gap 8 mmol/L; Blood Urea Nitrogen 16 mg/dL (9-20); Calcium 9.1 mg/dL (8.4-10.2); Carbon Dioxide 23 mmol/L (22-30); Chloride 110 mmol/L (98-107); Glucose 130 mg/dL (74-99); Non-African American GFR(CKD) >90 (>60 ml/min/1.73 sqM); Potassium 3.9 mmol/L (3.5-5.1); Sodium 141 mmol/L (137-145); Total Bilirubin 0.3 mg/dL (0.2-1.3); Total Protein 6.6 g/dL (6.3-8.2)
[2020-12-21 00:38] LABS: Partial Thromboplastin Time 23.7 sec (22.0-30.0); Prothrombin Time 10.3 sec (9.0-12.0)
[2020-12-21] MEDS ORDERED: HYDROmorphone 1 MG/ML 1 ML SYRINGE IVP STA (01:11)
[2020-12-21] MEDS ORDERED: traMADol 50 MG STARTER PACK 3 TAB BTL PO STA (01:55)
--- NOTE | 2020-12-21 01:58 | ED ---
Skin/Abscess/FB HPI - General Chief complaint: Skin/Abscess/Foreign Body Stated complaint: Post op bleeding Time Seen by Provider: 12/20/20 22:39 Source: patient Mode of arrival: ambulatory Limitations: no limitations - History of Present Illness Initial comments: 30 year-old male patient presents to the emergency department today for evaluation of postop pain and bleeding. Patient had incision and drainage of a perianal abscess by Dr. Murillo and operating room on Sunday. He was discharged home with packing in place. Packing came out yesterday. Since then patient has been having bleeding. States that the bleeding has been heavy. He was given prescription for norco, but did not like the way they made him feel so he flushed them down the toilet. He states that the bleeding became heavier this evening so they came in for further evaluation. Denies any current fever or chills. Denies dizziness or weakness. Patient denies any recent rash, cough, shortness of breath, chest pain, abdominal pain, nausea, vomiting, diarrhea, constipation, back pain, numbness, tingling, hematuria, dysuria, urinary urgency, urinary frequency, headache, visual changes, or any other complaints. - Related Data Home Medications Medication Instructions Recorded Confirmed Acetaminophen Tab [Tylenol Tab] 1,000 mg PO Q4H PRN 12/20/20 12/20/20 Albuterol Sulfate [Proair Hfa] 4 puff INHALATION RT-Q4H PRN 12/20/20 12/20/20 Ibuprofen [Motrin Ib] 400 mg PO Q6HR PRN 12/20/20 12/20/20 traMADol HCL 50 mg PO Q4H PRN 12/20/20 12/20/20 Previous Rx's Medication Instructions Recorded Famotidine [Pepcid] 20 mg PO BID #28 tablet 12/12/20 hydrOXYzine HCL [Atarax] 25 mg PO TID PRN #15 tab 12/12/20 Levofloxacin [Levaquin] 500 mg PO DAILY 7 Days #7 tab 12/16/20 metroNIDAZOLE [Flagyl] 500 mg PO Q8HR 7 Days #21 tab 12/16/20 traMADol HCL 100 mg PO Q6H PRN #24 tablet 12/21/20 Allergies Allergy/AdvReac Type Severity Reaction Status Date / Time dexamethasone [From Decadron] Allergy Rash/Hives Verified 12/20/20 23:07 Review of Systems ROS Statement: Those systems with pertinent positive or pertinent negative responses have been documented in the HPI. ROS Other: All systems not noted in ROS Statement are negative. Past Medical History Past Medical History: No Reported History Additional Past Medical History / Comment(s): covid 19 - 11/27/20 History of Any Multi-Drug Resistant Organisms: None Reported Past Surgical History: Hernia Repair Past Anesthesia/Blood Transfusion Reactions: No Reported Reaction Past Psychological History: No Psychological Hx Reported Smoking Status: Never smoker Past Alcohol Use History: None Reported Past Drug Use History: None Reported General Exam Limitations: no limitations General appearance: alert, in no apparent distress, other (Physical well- developed well-nourished adult outpatient mild distress related to pain. Vital signs upon presentation are temperature 98.3F, pulse 114, respirations 18, blood pressure 135/73, pulse ox 97% on room air.) ENT exam: Present: normal exam, normal oropharynx, mucous membranes moist Respiratory exam: Present: normal lung sounds bilaterally. Absent: respiratory distress, wheezes, rales, rhonchi, stridor Cardiovascular Exam: Present: regular rate, normal rhythm, normal heart sounds. Absent: systolic murmur, diastolic murmur, rubs, gallop, clicks Rectal exam: Present: other (There is bleeding from perianal wound, dark red bloody drainage. No bright red blood noted. Area is extremely tender. ) Neurological exam: Present: alert, oriented X3, CN II-XII intact Psychiatric exam: Present: normal affect, normal mood Skin exam: Present: warm, dry, intact, normal color. Absent: rash Course Vital Signs 12/20/20 12/21/20 22:33 02:12 Temperature 98.3 F 98.3 F Pulse Rate 114 H 114 H Respiratory 18 18 Rate Blood Pressure 135/73 135/73 O2 Sat by Pulse 97 97 Oximetry Medical Decision Making - Medical Decision Making 30 -year-old male patient presents to the emergency department for evaluation of increased bleeding and pain to surgical site. Physical examination did reveal dark red bloody drainage from a perianal wound. He is afebrile normal vital signs. Labs reviewed showed normal hemoglobin. Patient did report bleeding had slowed upon reevaluation. He was given several doses of pain medication. We discharged with prescription for tramadol. He is instructed to call Dr. Barboza's office first thing in the morning for further instructions. Return parameters were discussed in detail. He verbalizes understanding and agrees this plan. Case discussed with my attending Dr. Adams. - Lab Data Result diagrams: 12/20/20 23:27 12/20/20 23:27 Lab Results 12/20/20 12/20/20 12/20/20 Range/Units 23:27 23:27 23:27 WBC 8.7 (3.8-10.6) k/uL RBC 4.73 (4.30-5.90) m/uL Hgb 13.9 (13.0-17.5) gm/dL Hct 40.2 (39.0-53.0) % MCV 84.8 (80.0-100.0) fL MCH 29.3 (25.0-35.0) pg MCHC 34.5 (31.0-37.0) g/dL RDW 12.1 (11.5-15.5) % Plt Count 319 (150-450) k/uL MPV 6.7 Neutrophils % 61 % Lymphocytes % 28 % Monocytes % 5 % Eosinophils % 5 % Basophils % 1 % Neutrophils # 5.2 (1.3-7.7) k/uL Lymphocytes # 2.4 (1.0-4.8) k/uL Monocytes # 0.4 (0-1.0) k/uL Eosinophils # 0.4 (0-0.7) k/uL Basophils # 0.0 (0-0.2) k/uL PT 10.3 (9.0-12.0) sec INR 1.0 (<1.2) APTT 23.7 (22.0-30.0) sec Sodium 141 (137-145) mmol/L Potassium 3.9 (3.5-5.1) mmol/L Chloride 110 H (98-107) mmol/L Carbon Dioxide 23 (22-30) mmol/L Anion Gap 8 mmol/L BUN 16 (9-20) mg/dL Creatinine 0.81 (0.66-1.25) mg/dL Est GFR (CKD-EPI)AfAm >90 (>60 ml/min/1.73 sqM) Est GFR (CKD-EPI)NonAf >90 (>60 ml/min/1.73 sqM) Glucose 130 H (74-99) mg/dL Calcium 9.1 (8.4-10.2) mg/dL Total Bilirubin 0.3 (0.2-1.3) mg/dL AST 43 (17-59) U/L ALT 89 H (4-49) U/L Alkaline Phosphatase 71 (38-126) U/L Total Protein 6.6 (6.3-8.2) g/dL Albumin 3.7 (3.5-5.0) g/dL Disposition Clinical Impression: Post-op pain, Post-op bleeding Disposition: HOME SELF-CARE Condition: Good Instructions (If sedation given, give patient instructions): Pain Management (ED) Additional Instructions: Take medications as directed. Follow-up through primary care physician for recheck in 1-2 days. Return for any new, worsening, or concerning symptoms. Prescriptions: traMADol HCL 100 mg PO Q6H PRN #24 tablet PRN Reason: Pain Is patient prescribed a controlled substance at d/c from ED?: Yes When asked, does pt state using other controlled substances?: Yes If prescribed controlled substance>3 days was MAPS reviewed?: Prescribed <3 Days If opioid is for acute pain is fill amount 7 days or less?: Yes If Rx opioid, was Start Talking consent form obtained?: Yes Referrals: Nabeel Vasquez MD [Primary Care Provider] - 1-2 days Santiago Murillo MD [STAFF PHYSICIAN] - 1-2 days Time of Disposition: 01:57
== END 2020-12-21 02:13 | disposition home or self-care (01) ==
LOC: EC 22:25
DX: N99.820 Postprocedural hemorrhage of a genitourinary system organ or structure following a genitourinary system procedure (principal); G89.18 Other acute postprocedural pain
CPT/HCPCS: 36415; 80053; 85025; 85610; 85730; 99283; 96374; 96375; 96376; J2405; J1170 ×2